=== PATIENT | female | born 1960 | race Caucasian/White ===

== ENCOUNTER 2021-04-01 08:36 | Outpatient (REF) | payer OTHER, SELFPAY ==
--- NOTE | ~2021-04-01 | MM_ITS ---
EXAMINATION: MM SCREENING DIGITAL BREAST TOMOSYNTHESIS, BILATERAL CLINICAL INFORMATION: Screening. Asymptomatic. The lifetime risk of breast cancer based on the Tyrer-Cuzick Model is 6%. COMPARISON: Mammography: 07/14/2018, 05/18/2017, 04/07/2016 TECHNIQUE: Digital breast tomosynthesis is performed in both the craniocaudal and mediolateral oblique views along with computer-aided detection (CAD). Synthesized 2D images are generated from the tomosynthesis. FINDINGS: There are scattered areas of fibroglandular density (ACR BI-RADS breast composition Category b). There are no significant masses, abnormal calcifications, or other abnormalities. Parenchymal pattern is similar to prior studies. There is no developing density or architectural abnormality. The axilla and skin contours are unremarkable. No significant changes. MM/MM tomosynthesis screening BI IMPRESSION: No mammographic evidence of malignancy. ASSESSMENT: BI-RADS 1: Negative RECOMMENDATION: Routine annual mammography screening. This patient's information was entered into a reminder system with a target due date for their next mammogram.
== END 2021-04-01 08:37 | disposition home or self-care (01) ==
LOC: HO.MAMMO 08:36
PROVIDERS: PCP Internal Medicine; Visit Provider Internal Medicine
DX: Z12.31 Encounter for screening mammogram for malignant neoplasm of breast (principal)
CPT/HCPCS: 77063; 77067

== ENCOUNTER → 2021-05-10 12:30 | Outpatient (BNVA) | payer OTHER, SELFPAY | PROVIDERS: PCP Internal Medicine; Referring Provider Internal Medicine; Visit Provider Nurse Practitioner | DX: D12.6 Benign neoplasm of colon, unspecified (principal) ==

== ENCOUNTER 2021-09-02 09:36 | Day surgery (SDC) | payer OTHER, SELFPAY ==
--- NOTE | 2021-08-30 10:35 | P.CONAN_ITS ---
Documented by User: Pamela Farah NP 08/30/21 10:35 HPI - Anesthesia Eval Consult details Narrative: 61yo F for Colonoscopy PMFSH Active Problems Active Problems: All Active Problems (Updated 05/07/21 @ 08:26 by SARINA Jarvis) Tubular adenoma of colon (Acute) Family history of polyps in the colon (Acute) Smoker (Acute) High cholesterol (Acute) Ovarian cyst (Acute) Past Medical History Medical History High cholesterol Ovarian cyst Smoker Surgical History Surgical History (Updated 05/07/21 @ 08:26 by SARINA Jarvis) H/O colonoscopy Social History Social History (System 01/01/21 @ 11:48 by April Lynne) Advance Directives: No Advance Directives Information Provided: Yes Meds Allergies Allergy/AdvReac Type Severity Reaction Status Date / Time No Known Allergies Allergy Unverified 05/10/21 13:03 [No Known Allergies*] Home Medications Medication Instructions Recorded Confirmed Last Taken Type aspirin 81 mg capsule 81 mg PO DAILY 05/10/21 Unknown History atorvastatin 40 mg tablet 40 mg PO DAILY 05/10/21 Unknown History ffybbhdg-wtq-eawyv ac 400 tab PO 05/10/21 Unknown History mcg-calcium carb 500 mg-vit K1 20 mcg tablet (Women's 50 Plus Multivitamin) Exam Exam Date and Time: August 30, 2021 103 Assessment and Plan Assessment Anesthesia Assessment: Chart Reviewed Documented by User: Julieth Gramajo MD 09/02/21 10:16 [facility] Past Medical History Medical History High cholesterol Ovarian cyst Smoker Family History Family history of problems with anesthesia: No Surgical History Surgical History (Updated 05/07/21 @ 08:26 by SARINA Jarvis) H/O colonoscopy History of Problems with Anesthesia: No Social History Social History (System 01/01/21 @ 11:48 by April Lynne) Advance Directives: No Advance Directives Information Provided: Yes Meds Allergies Allergy/AdvReac Type Severity Reaction Status Date / Time No Known Allergies Allergy Unverified 05/10/21 13:03 [No Known Allergies*] Home Medications Medication Instructions Recorded Confirmed Last Taken Type aspirin 81 mg capsule 81 mg PO DAILY 05/10/21 Unknown History atorvastatin 40 mg tablet 40 mg PO DAILY 05/10/21 Unknown History rdhklrra-edj-vdjwg ac 400 tab PO 05/10/21 Unknown History mcg-calcium carb 500 mg-vit K1 20 mcg tablet (Women's 50 Plus Multivitamin) Exam Airway Mallampati Class: II (Missing a couole nothing loose) TM Dist: >3cm Neck ROM: Full Heart: rrr Lungs: cta Assessment and Plan Assessment Anesthesia Assessment: Anesthesia Plan Discussed and Chart Reviewed Final Anesthetic Review Family History of Problems with Anesthesia: No History of Problems with Anesthesia: No NPO: Yes ASA Class: II Final Preanesthetic Review: No Changes in Pt Med Stat, Meds/Allgs Chart Reviewed and Consent Obtained/Reviewed Patient Risk: Intermediate Procedure Risk: Intermediate Anesthetic Plan Anesthetic Plan: MAC: Disposition: Standard PACU
[2021-09-02 10:03] VITALS: BP 124/63; PULSE 74; RESP 18; TEMP 36.9; O2SAT 98
--- NOTE | 2021-09-02 10:17 | MHC.SHP ---
Pre-Procedural Eval Section A Date of Service: 09/02/21 The patient is an INPATIENT: No The History & Physical has been completed within 30 days and I have reviewed it.: No Section B Chief Complaint: screening, Benign neoplasm of colon, Relevant Family History (Specify if Yes): Yes Relevant Social History: None Present Medications: see Short Stay Collaborative assessment Medical History: Significant History (High cholesterol Smoker Tubular adenoma Ovarian cyst) History of Previous Operations: Relevant previous surgery/procedure and date(s) (Bilateral oovarectomy, no hyst r/t ovarian cysts, history of colonoscopy) Allergies: Allergies Allergy/AdvReac Type Severity Reaction Status Date / Time No Known Allergies Allergy Unverified 05/10/21 13:03 [No Known Allergies*] Review of Systems Sugical H&P ROS: Negative: Constitution, Cardiovascular, Respiratory and Gastrointestinal Exam Surgical H&P Exam: Normal: Heart, Normal: Lungs, Normal: Extremities and Normal: Abdomen Plan Diagnosis/Plan: Unchanged I have reviewed the history and physical and performed a pertinent physical examination on my patient. No changes have occurred unless specified.
--- NOTE | 2021-09-02 10:23 | PM.OP ---
Brief Operative Note Date of Service: 09/02/21 Pre-op diagnosis: Colon cancer screening, history of colon polyps Post-op diagnosis: other (Colon polyps, diverticulosis, hemorrhoids) Procedure: COLONOSCOPY TILL CECUM WITH BIOPSIES AND SNARE POLYPECTOMY Consent: Indications for the procedure and potential complications of bleeding, perforation, reaction to medications and missed diagnosis were discussed with the patient and informed consent was obtained. Instrument: Olympus PCF H 190 L variable stiffness pediatric colonoscope Monitoring: Vital signs and clinical assessment, intermittent blood pressure monitoring, continuous EKG monitoring, Pulse oximetry and Carbon Dioxide monitoring were done throughout the procedure. Colon withdrawl time was 22 minutes. Procedure: The patient was placed in the left lateral decubitis position and pre-procedure medications were administered. After a digital rectal examination of the ano-rectum, the video colonoscope was inserted into the rectum and advanced through the colon to the cecum. The colonoscope was slowly withdrawn in a retrograde panoramic fashion and the colon mucosa was carefully examined including a retroflexed view of the rectum. Findings and interventions are described below. Procedure Difficulty: Colon was long and tortuous and there was some loop formation. No maneuvers were required Findings: Terminal Ileum: Not evaluated Cecum: Normal Ascending Colon: A 12-15 mm sessile polyp in the proximal AC removed with a hot snare. Two 4-5 mm sessile polyps removed with a cold bx. Transverse Colon: A 10 mm sessile polyp removed with a cold snare. Three 5-6 mm sessile polyps removed with a cold bx. Moderate diverticulosis Descending Colon: Moderate diverticulosis Sigmoid Colon: Severe diverticulosis with luminal narrowing Rectum: Normal Ano-rectum: Moderate internal hemorrhoids Colon preparation: Excellent Impression and Post Procedure Diagnosis: Colonoscopy Findings: Seven small to medium sized polyps removed Moderate to severe diverticulosis seen in the left and transverse colon Moderate hemorrhoids on retroflexed exam. Plan: Await pathology results Patient has an appointment on 09/20/21 in the GI Clinic with Batsheva Gudino NP. Repeat Colonoscopy interval based on path results - in 3 years if three or more polyps are adenomatous and 5 yrs if polyps are hyperplastic. Above findings were reviewed with the patient and colon polyps and diverticulosis handouts were given in the discharge area Surgeon: Niki Lewis MD Anesthesia: MAC (DR Thurman) Was an Employee Communications Coordinator used for this Procedure?: Yes Employee Communications Coordinator: Staci Hawkins Estimated blood loss (mL): 0 Pathology: other (A. ascending colon polyps (3) B. transverse colon polyp (3)) Condition: stable Disposition: PACU
[2021-09-02 11:05] VITALS: BP 97/53; PULSE 70; RESP 16; TEMP 36.5; O2SAT 97
[2021-09-02 11:20] VITALS: BP 125/58; PULSE 66; RESP 16; O2SAT 97
[2021-09-02 11:35] VITALS: BP 119/50; PULSE 58; RESP 16; TEMP 36.4; O2SAT 99
--- NOTE | 2021-09-02 12:25 | P.OP_ITS ---
Operative Note Operative Note Date of Service: 09/02/21 Narrative: Pre-op diagnosis: Colon cancer screening, history of colon polyps Post-op diagnosis:?other (Colon polyps, diverticulosis, hemorrhoids) Procedure: COLONOSCOPY TILL CECUM WITH BIOPSIES AND SNARE POLYPECTOMY Consent: Indications for the procedure and potential complications of bleeding, perforation, reaction to medications and missed diagnosis were discussed with the patient and informed consent was obtained. Instrument: Olympus PCF H 190 L variable stiffness pediatric colonoscope Monitoring: Vital signs and clinical assessment, intermittent blood pressure monitoring, continuous EKG monitoring, Pulse oximetry and Carbon Dioxide monitoring were done throughout the procedure. Colon withdrawl time was 22 minutes. Procedure: The patient was placed in the left lateral decubitis position and pre-procedure medications were administered. After a digital rectal examination of the ano-rectum, the video colonoscope was inserted into the rectum and advanced through the colon to the cecum. The colonoscope was slowly withdrawn in a retrograde panoramic fashion and the colon mucosa was carefully examined including a retroflexed view of the rectum. Findings and interventions are described below. Procedure Difficulty:? Colon was long and tortuous and there was some loop formation.? No maneuvers were required Findings: Terminal Ileum: Not evaluated Cecum:? Normal Ascending Colon:? A 12-15 mm sessile polyp in the proximal AC removed with a hot snare. Two 4-5 mm sessile polyps removed with a cold bx. Transverse Colon:? A 10 mm sessile polyp removed with a cold snare. Three 5-6 mm sessile polyps removed with a cold bx. Moderate diverticulosis Descending Colon:? Moderate diverticulosis Sigmoid Colon:? Severe diverticulosis with luminal narrowing Rectum:? Normal Ano-rectum:? Moderate internal hemorrhoids Colon preparation: Excellent ? Impression and Post Procedure Diagnosis: Colonoscopy Findings: Seven small to medium sized polyps removed Moderate to severe diverticulosis seen in the left and transverse colon Moderate hemorrhoids on retroflexed exam. Plan: Await pathology results Patient has an appointment on 09/20/21 in the GI Clinic with? Batsheva Gudino NP. Repeat Colonoscopy interval based on path results - in 3 years if three or more polyps are adenomatous and 5 yrs if polyps are hyperplastic. Above findings were reviewed with the patient and colon polyps and div erticulosis handouts were given in the discharge area Surgeon: Niki Lewis MD Anesthesia:?MAC (DR DiCampli) Was an Therapeutic Activities Services Worker used for this Procedure?:?Yes Therapeutic Activities Services Worker:?Staci Hawkins Estimated blood loss (mL):?0 Pathology:?other (A. ascending colon polyps (3)? B. transverse colon polyp (3)) Condition:?stable Disposition:?PACU
== END 2021-09-02 12:08 | disposition home or self-care (01) ==
PROVIDERS: PCP Internal Medicine; Visit Provider Internal Medicine Gastroenterology
PROC: 0DJD8ZZ Inspection of Lower Intestinal Tract, Via Natural or Artificial Opening Endoscopic (ICD-10-PCS; CPT 45378; principal; 2021-09-02 11:00)
DX: Z12.11 Encounter for screening for malignant neoplasm of colon (principal); Z86.010 Personal history of colon polyps; D12.2 Benign neoplasm of ascending colon; D12.3 Benign neoplasm of transverse colon; Z83.71 Family history of colonic polyps; K57.30 Diverticulosis of large intestine without perforation or abscess without bleeding; K64.8 Other hemorrhoids; E78.00 Pure hypercholesterolemia, unspecified; Z79.899 Other long term (current) drug therapy; Z79.82 Long term (current) use of aspirin
CPT/HCPCS: 45385; 45380; 88305

== ENCOUNTER 2022-04-28 13:19 | Outpatient (REF) | payer OTHER, SELFPAY ==
--- NOTE | ~2022-04-28 | MM_ITS ---
EXAMINATION: MM SCREENING DIGITAL BREAST TOMOSYNTHESIS, BILATERAL CLINICAL INFORMATION: Screening. Asymptomatic. The lifetime risk of breast cancer based on the Tyrer-Cuzick Model is 5%. COMPARISON: Mammography: 04/01/2021, 07/14/2018, 05/18/2017 TECHNIQUE: Digital breast tomosynthesis is performed in both the craniocaudal and mediolateral oblique views along with computer-aided detection (CAD). Synthesized 2D images are generated from the tomosynthesis. FINDINGS: There are scattered areas of fibroglandular density (ACR BI-RADS breast composition Category b). There are no significant masses, abnormal calcifications, or other abnormalities. No architectural abnormality or developing density or significant change from prior studies. There is a chronic circumscribed oval retroareolar nodule on the left similar to prior studies. The axilla are unremarkable. There is mild bilateral chronic nipple retraction. MM/MM tomosynthesis screening BI IMPRESSION: No mammographic evidence of malignancy. ASSESSMENT: BI-RADS 2: Benign RECOMMENDATION: Routine annual mammography screening. This patient's information was entered into a reminder system with a target due date for their next mammogram.
== END 2022-04-28 13:20 | disposition home or self-care (01) ==
LOC: HO.MAMMO 13:19
PROVIDERS: PCP Internal Medicine; Visit Provider Internal Medicine
DX: Z12.31 Encounter for screening mammogram for malignant neoplasm of breast (principal)
CPT/HCPCS: 77063; 77067

== ENCOUNTER 2023-05-11 12:18 | Outpatient (REF) | payer OTHER, SELFPAY | END 2023-05-11 12:19 | disposition home or self-care (01) | LOC: HO.MAMMO 12:18 | PROVIDERS: PCP Internal Medicine; Visit Provider Internal Medicine | DX: Z12.31 Encounter for screening mammogram for malignant neoplasm of breast (principal) | CPT/HCPCS: 77063; 77067 ==

== ENCOUNTER → 2023-05-11 12:30 | Outpatient (BNV) | payer OTHER, SELFPAY | PROVIDERS: PCP Internal Medicine; Visit Provider Radiology Diagnostic Radiology | DX: Z12.31 Encounter for screening mammogram for malignant neoplasm of breast (principal) | CPT/HCPCS: 77063; 77067 ==

== ENCOUNTER 2024-03-15 16:36 | Outpatient (REF) | payer OTHER, SELFPAY ==
--- OUTSIDE RECORDS SUMMARY | 2024-03-15 17:57 | XMS_ITS | Encounter Summary ---
Author Organization [email or web address] Address [address] [place] [address] Care Team Providers Care Seasonal Package Handler Name Role Phone Gregory Coronel MD Primary Care Provider [phone] Encounter Details Date Type Department Care Team (Late st Contact Info) Description 04/18/2022 Orders Only [facility] [address] [place], [place] [id number] Mariely Al LPN Social History Tobacco Use Types Packs/Day Years Used Date Smoking Tobacco: Never Assessed Comments Unknown Sex and Gender Information Value Date Recorded Sex Assigned at Female 12/23/2021 10:28 AM EDT Legal Sex Female 10:28 AM EDT Gender Identity Female 12/23/2021 10:28 AM EDT Sexual Orientation Choose not to disclose 2021 10:28 AM EDT documented as of this encounter Plan of Treatment Not on file documented as of this encounter Procedures Procedure Name Priority Date/Time Associated Diagnosis Comments BI MAMMOGRAM SCREENING TOMOSYNTHESIS BILATERAL Routine 04/28/2022 1:35 PM EST documented in this encounter Results * BI Mammogram Screening Tomosynthesis Bilateral (04/28/2022 1:35 PM EST) Anatomical Region Laterality Modality Breast Bilateral Mammography 04/28/2022 1:35 PM EST Narrative 04/30/2022 11:20 AM EST ? [facility] ? [address] ?[place] [address] ? Mammography Report ? Signed ? Patient: Del Rio,Isabel ?MR#: [id number] ?? 1 ? : 1960 ?Acct:[id number] ? Age/Sex: 61 / F ?ADM Date: 03/06/23 ? Loc: HO.MAMMO ? Attending Dr: Gregory Coronel MD ? Ordering Physician: Gregory Coronel MD ?Results: 2 ?? Benign Findings ? Date of Service: 04/28/22 ?Follow Up: 1 Year From Orig ?? inal Mammogram ? Procedure(s): MM tomosynthesis screening BI ?? Accession Number(s): [id number] ? cc: Gregory Coronel MD ? EXAMINATION: ?? MM SCREENING DIGITAL BREAST TOMOSYNTHESIS, BILATERAL ? CLINICAL INFORMATION: ? Screening. Asymptomatic. ? The lifetime risk of breast cancer based on the Tyrer-Cuzick Model is ?? 5%. ? COMPARISON: ?? Mammography: 04/01/2021, 07/14/2018, 05/18/2017 ? TECHNIQUE: ?? Digital breast tomosynthesis is performed in both the craniocaudal and ?? mediolateral oblique views along with computer-aided detection (CAD). ?? Synthesized 2D images are generated from the tomosynthesis. ? FINDINGS: ?? There are scattered areas of fibroglandular density (ACR BI-RADS breast ?? composition Category b). ? There are no significant masses, abnormal calcifications, or other ?? abnormalities. ??No architectural abnormality or developing density or ?? significant change from prior studies. There is a chronic circumscribed ?? oval retroareolar nodule on the left similar to prior studies. The ?? axilla are unremarkable. There is mild bilateral chronic nipple ?? retraction. ? MM/MM tomosynthesis screening BI ?? IMPRESSION: ?? No mammographic evidence of malignancy. ? ASSESSMENT: ? BI-RADS 2: Benign ? RECOMMENDATION: ?? Routine annual mammography screening. ? This patient's information was entered into a reminder system with a ?? target due date for their next mammogram. ? Dictated By: ?Wilfred Pollock MD ? Signed By: ?<Electronically signed by Wilfred Pollock MD in OV> ?04/30/226 ? DD/ 1335 ? TD/TT: ? Infrastructure Engineer: MCNAMARA ? Procedure Note Dondarrylter, Image - 04/30/2022 [facility] [address] [place] [address] Mammography Report Signed Patient: Victoriano Del Rio#: [id number] 1 : 1960Acct:[id number] Age/Sex: 61 / FADM Date: 04/28/22 Loc: HO.MAMMO Attending Dr: Gregory Coronel MD Ordering Physician: Gregory Coronel MDResults: 2 Benign Findings Date of Service: 04/28/22Follow Up: 1 Year From [facility] Mammogram Procedure(s): MM tomosynthesis screening BI Accession Number(s): [id number] cc: Gregory Coronel MD EXAMINATION: MM SCREENING DIGITAL BREAST TOMOSYNTHESIS, BILATERAL CLINICAL INFORMATION: Screening. Asymptomatic. The lifetime risk of breast cancer based on the Tyrer-Cuzick Model is 5%. COMPARISON: Mammography: 04/01/2021, 07/14/2018, 05/18/2017 TECHNIQUE: Digital breast tomosynthesis is performed in both the craniocaudal and mediolateral oblique views along with computer-aided detection (CAD). Synthesized 2D images are generated from the tomosynthesis. FINDINGS: There are scattered areas of fibroglandular density (ACR BI-RADS breast composition Category b). There are no significant masses, abnormal calcifications, or other abnormalities. No architectural abnormality or developing density or significant change from prior studies. There is a chronic circumscribed oval retroareolar nodule on the left similar to prior studies. The axilla are unremarkable. There is mild bilateral chronic nipple retraction. MM/MM tomosynthesis screening BI IMPRESSION: No mammographic evidence of malignancy. ASSESSMENT: BI-RADS 2: Benign RECOMMENDATION: Routine annual mammography screening. This patient's information was entered into a reminder system with a target due date for their next mammogram. Dictated By: Wilfred Pollock MD Signed By: <Electronically signed by Wilfred Pollock MD in OV> 04/30/22 1116 DD/ 1335 TD/TT: Infrastructure Engineer: MCNAMARA [facility] External Provider IMG BI PROCEDURES Final Result documented in this encounter Visit Diagnoses Not on filedocumented in this encounter Care Teams Seasonal Package Handler Relationship Specialty Start Date End Date Gregory Coronel MD [address] [place] [id number] PCP - General Internal Medicine 11/18/17 documented as of this encounter
--- OUTSIDE RECORDS SUMMARY | 2024-03-15 17:57 | XMS_ITS | Encounter Summary ---
Author Organization [employer] Address [address] [place] [address] Care Team Providers Care Meter Inspector Name Role Phone Gregory Coronel MD Primary Care Provider [phone] Encounter Details Date Type Department Care Team (Latest Contact Info) Description 03/15/2024 Travel Social History Tobacco Use Types Packs/Day Years Used Date Smoking Tobacco: Every Day Cigarettes 0.5 40 Smokeless Tobacco: Never Alcohol Use Standard Drinks/Week Comments Not Currently 0 (1 standard drink = 0.6 oz pur e alcohol) Depression Answer Date Recorded Patient Health Questionnaire-9 Score 1 07/28/2022 Housing Stability Answer Date Recorded What is your housing situation today? I have frankjuan pablo elaine 12/22/[address] you li ve. Do you have problems with any of the following? None of the above 12/22/2022 Food Insecurity Answer Date Recorded Within the past 12 months, y ou worried that your food would run out before you got money to buy more: Never True 12/22/2022 Within the past 12 months,th e food you bought just didn't last and you didn't have enough money to get more: Never True Transportation Answer Date Recorded In the past 12 months, has l ack of transportation kept you from medical appts, meetings, work or from getting things needed for daily living? No 12/22/2022 Utilities Answer Date Recorded In the past 12 months, has t he electric, gas, oil or water company threatened to shut off services in your home? No 12/22/2022 Depression Answer Date Recorded Patient Health Questionnaire-2 Score 0 07/28/2022 Comments No Sex and Gender Information Value Date Recorded Sex Assigned at Female 12/23/2021 10:28 AM EDT Legal Sex Female 10:28 AM EDT Gender Identity Female 12/23/2021 10:28 AM EDT Sexual Orientation Choose not to disclose 2021 10:28 AM EDT documented as of this encounter Plan of Treatment Not on file documented as of this encounter Visit Diagnoses Not on filedocumented in this encounter Additional Health Concerns Assessment Noted Time PHQ-9 Depression Total Score: 1 07/29/19 23 11:28 AM EDT documented as of this encounter Care Teams Meter Inspector Relationship Specialty Start Date End Date Gregory Coronel MD [address] [place] [id number] PCP - General Internal Medicine 11/18/17 documented as of this encounter
--- OUTSIDE RECORDS SUMMARY | 2024-03-15 17:57 | XMS_ITS | Clinical Summary ---
Author Organization [employer] Address [address] [place] [address] Care Team Providers Care Senior Network Security Architect Name Role Phone Gregory Coronel MD Primary Care Provider [phone] Allergies No known active allergies Medications atorvastatin (Lipitor) 40 MG tablet TAKE ONE TABLET DAILY 2 Active atorvastatin (Lipitor) 40 MG tabletIndications:M ixed hyperlipidemia TAKE ONE TABLET DAILY 90 tablet 3 4 Active Active Problems Problem Noted Date Diagnosed Date History of nutritional disorder 07/28/2022 Polyp of colon 02/14/2021 Dyslipidemia 02/12/2015 Smoker 02/12/2015 Vitamin D deficiency 02/12/2015 Encounters Date Type Department Care Team Description 03/15/2024 11:00 AM EST Procedure Visit [facility] [address] [place] [address] Petty Pizano CNM Routine cervical smear (Primary Dx) 03/15/2024 Travel 01/08/2024 Travel from Last 3 Months Family History Medical History Relation Name Comments Diabetes type II Brother Heart attack Brother Smoking Brother Alcohol abuse Father Heart disease Mother No Known Problems Paternal Grandmother Relation Name Status Comments Brother Father Mother Paternal Grandmother Social History Tobacco Use Types Packs/Day Years Used Date Smoking Tobacco: Every Day Cigarettes 0.5 40 Smokeless Tobacco: Never Tobacco Cessation:Ready to Q uit: Not Asked; Counseling Given: Not Answered Alcohol Use Standard Drinks/Week Comments Not Currently 0 (1 standard drink = 0.6 oz pur e alcohol) Depression Answer Date Recorded Patient Health Questionnaire-9 Score 1 07/28/2022 Housing Stability Answer Date Recorded What is your housing situation today? I have frank elaine 12/22/[address] you [...] not to disclose 2021 10:28 AM EDT Last Filed Vital Signs Vital Sign Reading Time Taken Comments Blood Pressure 171/84 03/15/2024 10:52 AM EST Pulse 77 03/15/2024 10:52 AM EST Temperature 35.8 ??C (96.5 ??F) 03/15/2024 1 0:52 AM EST Respiratory Rate 20 03/15/2024 10:5 2 AM EST Oxygen Saturation 99% 03/15/2024 10: 52 AM EST Inhaled Oxygen Concentration - - Weight 68.4 kg (150 lb 12.8 oz) 025 10:52 AM EST Height 154.9 cm (5' 1 ) 03/15/2024 10:5 2 AM EST Body Mass Index 28.49 03/15/2024 10:52 AM EST Plan of Treatment Health Maintenance Due Date Last Done Comments CT Colonography 1959 Colonoscopy 1959 Colorectal Cancer Screening 1959 FIT DNA/Cologuard 1959 FIT 1959 FOBT 1959 HIV Screening 1959 Sigmoidoscopy 1959 Alcohol/Substance Use Screening 1971 Hepatitis C Screening 07/04/1977 Lung Cancer Screening 07/04/2009 Zoster Vaccines (1 of 2) 07/04/2009 Pneumococcal Vaccine: Pediatrics (0 to 5 Years) and At-Risk Patients (6 to 64 Years) (2 of 2 - PCV) 12/30/2016 12/31/2015 Depression Screening 07/29/2023 07/28/2022, 07/29/19 23 SDOH Screening 07/29/2023 07/28/2022 COVID-19 Vaccine ( season) 2023 04/08/2021, 05/08/2020, 04/10/2020 Influenza Vaccine (#1) 2023 Cervical Cancer Screening 03/12/2024 HPV/Cotest 03/12/2024 03/12/2021, 11/16/2018 Pap Smear 03/12/2024 03/12/2021 Tobacco Screening 03/15/2025 03/15/2024 Mammogram 05/10/2025 05/11/2023, 03/0 07/2022, 04/01/2021, Additional history exists DTaP/Tdap/Td Vaccines (2 - Td or Tdap) 05/05/2026 05/05/2016 Lipid Panel 06/04/2026 06/04/2021, 02/26/2021 RSV Patients and Patients Aged 60 years or older (1 - 1-dose 75+ series) 07/04/2034 HIB Vaccines Aged Out No longer eligi ble based on patient's age to complete this topic HPV Vaccines Aged Out No longer eligi ble based on patient's age to complete this topic Hepatitis A Vaccines Aged Out No long er eligible based on patient's age to complete this topic Hepatitis B Vaccines Aged Out No long er eligible based on patient's age to complete this topic IPV Vaccines Aged Out No longer eligi ble based on patient's age to complete this topic Meningococcal Vaccine Aged Out No ash bita eligible based on patient's age to complete this topic RSV under 20 months Aged Out No longe r eligible based on patient's age to complete this topic Rotavirus Vaccines Aged Out No longer eligible based on patient's age to complete this topic Procedures Procedure Name Priority Date/Time Associated Diagnosis Comments BI MAMMOGRAM SCREENING TOMOSYNTHESIS BILATERAL Routine 05/11/2023 12:36 PM EDT LIPID PANEL, STANDARD Routine 06/04/2021 8:53 AM EDT THINPREP IMAGING PAP AND HPV MRNA E6/E7 WITH REFLEX TO HPV 16,18/45 Routine 03/12/2021 9:45 AM EST from Last 3 Months or Most Recently Relevant to Health Maintenance Results * BI Mammogram Screening Tomosynthesis Bilateral (05/11/2023 12:36 PM EDT) Anatomical Region Laterality Modality Breast Bilateral Mammography 05/11/2023 12:3 6 PM EDT Narrative 06/02/2023 10:50 PM EDT ? [facility] [place] ? [address] ?[place] [address] ? Mammography Report ? Signed ? Patient: Del Rio,Isabel ?MR#: [id number] ?? 1 ? : 1960 ?Acct:[id number] ? Age/Sex: 62 / F ?ADM Date: /18/24 ? Loc: HO.MAMMO ? Attending Dr: Gregory Coronel MD ? Ordering Physician: Gregory Coronel MD ?Results: 1 ?? Negative ? Date of Service: /18/24 ?Follow Up: 1 Year From Orig ?? inal Mammogram ? Procedure(s): MM tomosynthesis screening BI ?? Accession Number(s): [id number] ? cc: Gregory Coronel MD ? EXAMINATION: ?? MM SCREENING DIGITAL BREAST TOMOSYNTHESIS, BILATERAL ? CLINICAL INFORMATION: ? Screening. Asymptomatic. ? COMPARISON: ?? Mammography: This study is compared with prior exams dating back to ?? 2018. ? TECHNIQUE: ?? Digital breast tomosynthesis is performed in both the craniocaudal and ?? mediolateral oblique views along with computer-aided detection (CAD). ?? Synthesized 2D images are generated from the tomosynthesis. ? FINDINGS: ?? There are scattered areas of fibroglandular density (ACR BI-RADS breast ?? composition Category b). ? There are no significant masses, abnormal calcifications, or other ?? abnormalities. ? MM/MM tomosynthesis screening BI ?? IMPRESSION: ?? No mammographic evidence of malignancy. ? ASSESSMENT: ? BI-RADS BI-RADS 1 - Negative ? RECOMMENDATION: ?? Routine annual mammography screening. ? 1 year F/U ? This examination should not preclude the clinical evaluation of a ?? suspicious palpable abnormality. ? This patient's information was entered into a reminder system with a ?? target due date for their next mammogram. ? Dictated By: ?Sara Stern MD ? Signed By: ?<Electronically signed by Sara Stern MD in OV> ? 06/02/23 2246 ? DD/ 1236 ? TD/TT: ? Chief Radiation Therapist: ? Procedure Note Dorothy, Shelby - 06/02/2023 [facility] [address] [place] [address] [place] [address] Mammography Report Signed Patient: Victoriano Del Rio#: [id number] 1 : 1960Acct:[id number] Age/Sex: 62 / FADM Date: 05/11/23 Loc: HO.MAMMO Attending Dr: Gregory Coronel MD Ordering Physician: Gregory Coronel MDResults: 1 Negative Date of Service: 05/11/23Follow Up: 1 Year From [facility] ina Mammogram Procedure(s): MM tomosynthesis screening BI Accession Number(s): [id number] cc: Gregory Coroenl MD EXAMINATION: MM SCREENING DIGITAL BREAST TOMOSYNTHESIS, BILATERAL CLINICAL INFORMATION: Screening. Asymptomatic. COMPARISON: Mammography: This study is compared with prior exams dating back to 2019. TECHNIQUE: Digital breast tomosynthesis is performed in both the craniocaudal and mediolateral oblique views along with computer-aided detection (CAD). Synthesized 2D images are generated from the tomosynthesis. FINDINGS: There are scattered areas of fibroglandular density (ACR BI-RADS breast composition Category b). There are no significant masses, abnormal calcifications, or other abnormalities. MM/MM tomosynthesis screening BI IMPRESSION: No mammographic evidence of malignancy. ASSESSMENT: BI-RADS BI-RADS 1 - Negative RECOMMENDATION: Routine annual mammography screening. 1 year F/U This examination should not preclude the clinical evaluation of a suspicious palpable abnormality. This patient's information was entered into a reminder system with a target due date for their next mammogram. Dictated By: Sara Stern MD Signed By: <Electronically signed by Sara Stern MD in OV> 06/02/23 2246 DD/ 1236 TD/TT: Chief Radiation Therapist: Gregory Coronel MD IMG BI PROCEDURES Final Res ult * (ABNORMAL) LIPID PANEL, STANDARD (06/04/2021 8:53 AM EDT) Chol/HDLC Ratio 3.1 <5.0 (calc) [facility] Cholesterol, Total 148 <200 mg/dL [facility] HDL Cholesterol 48(L) > OR = 50 mg/dL [facility] LDL Cholesterol 83 mg/dL (calc) [facility] Comment: Reference range: <100 ?? Desirable range <100 mg/dL for primary prevention; ?? <70 mg/dL for patients with CHD or diabetic patients ?? with > or = 2 CHD risk factors. ?? LDL-C is now calculated using the Loki ?? calculation, which is a validated novel method providing ?? better accuracy than the Friedewald equation in the ?? estimation of LDL-C. ?? Ibrahima PEREZ et al. HILDA. 2013;310(19): 0640-4342 ?? (http://education.Cono-C/faq/XTY023) Non-HDL Cholesterol 100 <130 mg/dL (calc) [facility] Comment: For patients with diabetes plus 1 major ASCVD risk ?? factor, treating to a non-HDL-C goal of <100 mg/dL ?? (LDL-C of <70 mg/dL) is considered a therapeutic ?? option. Triglycerides 80 <150 mg/dL [facility] 06/04/2021 8:53 AM EDT Gregory Coronel MD LAB BLOOD ORDERABLES Final Result [facility] [address] * THINPREP TIS PAP AND HPV mRNA E6/E7 WITH REFLEX TO HPV 16,18/45 (03/12/2021 9:45 AM EST) Clinical Information: None given [facility] COMMENT SEE COMMENT [facility] Comment: EXPLANATORY NOTE: ? The Pap is a screening test for cervical cancer. It is ?? not a diagnostic test and is subject to false negative ?? and false positive results. It is most reliable when a ?? satisfactory sample, regularly obtained, is submitted ?? with relevant clinical findings and history, and when ?? the Pap result is evaluated along with historic and ?? current clinical information. ?? COMMENT: This Pap test has been evaluated with computer assisted technology. [facility] Inspector Watch Train: SEE COMMENT [facility] Comment: DMM, CT(ASCP) CT screening location: [address] ??[id number] HPV nRNA E6/E7 Not Detected Not Detected [facility] Comment: Methodology: Radiologic Technology Instructor-Mediated Amplification This assay detects E6/E7 viral messenger RNA (mRNA) from 14 high-risk HPV types (16,18,31,33,35,39,45,51,52,56,58,59,66,68). ? The analytical performance characteristics of this assay have been determined by [employer]. The modifications have not been cleared or approved by the FDA. This assay has been validated pursuant to the CLIA regulations and is used for clinical purposes. ?? For additional information, please refer to http://education.Vhall/faq/WRU170w7 (This link if provided for information/ educational purposes only.) Interpretation/Re sult: Negative for intraepithelial lesion or malignancy. [facility] LMP: NONE GIVEN [facility] Prev. BX: NONE GIVEN [facility] Prev. PAP: 2018/2017 NIL/NEG CIN2 2016 [facility] SOURCE: None given [facility] Statement Of Adequacy: SEE COMMENT [facility] Comment: Satisfactory for evaluation. Endocervical/transformation zone component present. Age and/or menstrual status not provided 03/12/2021 9:45 AM EST us Petty Pizano CNM LAB PATHOLOGY ORDERABLES Final Result [facility] [address] from Last 3 Months or Most Recently Relevant to Health Maintenance Insurance COUNTS INCLUDE 234 BEDS AT THE [facility] OPEN ACCESS [facility] Care Teams Senior Network Security Architect Relationship Specialty Start Date End Date Gregory Coronel MD [address] [place] [id number] PCP - General Internal Medicine 11/18/17
--- OUTSIDE RECORDS SUMMARY | 2024-03-15 17:57 | XMS_ITS | Encounter Summary ---
Author Organization [employer] Address [address] [facility] [address] [place] [address] Care Team Providers Care Guardian Ad Litem Name Role Phone Gregory Coronel MD Primary Care Provider [phone] Reason for Visit * Reason Comments Gynecologic Exam Encounter Details Date Type Department Care Team (Latest Contact Info) Description 03/15/2024 11:00 AM EST Procedure Visit [facility] [address] [place], [place] [phone] Petty Pizano CNM [address] [place], [place] [phone] Routine cervical smear (Primary Dx) Social History Tobacco Use Types Packs/Day Years [...] AM EDT documented as of this encounter Last Filed Vital Signs Vital Sign Reading [...] Mass Index 28.49 03/15/2024 10:52 AM EST documented in this encounter Progress Notes * Petty Pizano, PHONG - 03/15/2024 11:00 AM EST Subjective Patient ID: Isabel Del Rio is a 63 y.o. female who presents for [employer] visit Last visit with me in 2021, Pap NIL/HPV neg. G2, menopausal at 49. No bleeding since then. [facility] for evaluation of possible right ovarian dermoid. She reports right ovary removed, benign.No complications. Pap NIL. HPV neg 10/2018. History of DROIS 2 in 2017. 1 fpc AMAB partner, no safety concerns. Occasional stress incontinence, no other urinary or vaginal symptoms. No personal fracture, no parental hip fracture Mammogram BIRADS 1, cat b 04/2023. Rare vasomotor symptoms. BP elevated today, has significant stress with [employer] visits due to hx DORIS. Denies chest pain, SOB or headache. Review of Systems Respiratory: Negative for shortness of breath. Cardiovascular: Negative for chest pain. Genitourinary: Negative for dyspareunia, dysuria, frequency, genital sores, hematuria, menstrual problem, pelvic pain, urgency, vaginal bleeding, vaginal discharge and vaginal pain. No abnormal bleeding, no breast pain, no breast mass, no nipple discharge Neurological: Negative for headaches. Objective BP (!) 171/84 (BP Location: Left arm, Patient Position: Sitting, BP Cuff Size: Large adult) Pulse77 Temp 96.5 ??F (35.8 ??C) (Temporal) Resp 20 Ht 5' 1 (1.549 m) Wt 150 lb 12.8 oz (68.4 kg) SpO2 99% BMI 28.49 kg/m?? Physical Exam Constitutional: Appearance: Normal appearance. Chest: Breasts: Right: Normal. No swelling, bleeding, inverted nipple, mass, nipple discharge, skin change or tenderness. Left: Normal. No swelling, bleeding, inverted nipple, mass, nipple discharge, skin change or tenderness. Genitourinary: General: Normal vulva. Labia: Right: No rash, tenderness, lesion or injury. Left: No rash, tenderness, lesion or injury. Vagina: Normal. No signs of injury and foreign body. No vaginal discharge, erythema, tenderness, bleeding or lesions. Cervix: No cervical motion tenderness, discharge, friability, lesion, erythema, cervical bleeding or eversion. Uterus: Normal. Not enlarged and not tender. Adnexa: Right adnexa normal and left adnexa normal. Right: No mass, tenderness or fullness. Left: No mass, tenderness or fullness. Comments: Ovaries non palpable bilaterally. Good tone with Kegels,mild cystocele Valsalva Lymphadenopathy: Upper Body: Right upper body: No supraclavicular or axillary adenopathy. Left upper body: No supraclavicular or axillary adenopathy. Neurological: Mental Status: She is alert. Psychiatric: Mood and Affect: Mood normal. Behavior: Behavior normal. Assessment/Plan Diagnoses and all orders for this visit: Routine cervical smear - Pap Smear Cotest today. Will contact with results and plan. Continue pap/HPV Q3y through 2041 due to DORIS 2 [id number]. Routine mammography. BMD later this year. Report bleeding. documented in this encounter Plan of Treatment Scheduled Orders Name Type Priority Associated Diagnoses Orde r Schedule Pap Smear Pathology and Cytology Routine Routine cervical smear Ordered: 03/15/2024 documented as of this encounter Visit Diagnoses Diagnosis Routine cervical smear- Primary Screening for malignant neoplasm of the cervix documented in this encounter Additional Health Concerns Assessment Noted Time PHQ-9 Depression Total Score: 1 07/29/19 23 11:28 AM EDT documented as of this encounter Care Teams Guardian Ad Litem Relationship Specialty Start Date End Date Gregory Coronel MD [address] [place] [id number] PCP - General Internal Medicine 11/18/17 documented as of this encounter
[2024-03-23 08:20] LABS: HPV Genotype 16 Negative (Negative); HPV Genotype 18 Negative (Negative); HPV High Risk Negative (Negative)
== END 2024-03-15 16:37 | disposition home or self-care (01) ==
LOC: HO.HHCLNP 16:36
PROVIDERS: Visit Provider Advanced Practice Midwife
DX: Z12.4 Encounter for screening for malignant neoplasm of cervix (principal); Z11.51 Encounter for screening for human papillomavirus (HPV); Z78.0 Asymptomatic menopausal state
CPT/HCPCS: 87626; 88175

== ENCOUNTER 2024-08-18 09:46 | Outpatient (REF) | payer BC, SELFPAY ==
--- OUTSIDE RECORDS SUMMARY | 2024-08-18 11:02 | XMS_ITS | Clinical Summary ---
Author Organization [employer] Address [address] [facility] [address] [place] [address] Care Team Providers Care Field Appraiser Name Role Phone Gregory Coronel MD Primary Care Provider [phone] Allergies No known active allergies Medications atorvastatin (Lipitor) 40 MG tablet TAKE ONE TABLET DAILY 2 Active atorvastatin (Lipitor) 40 MG tabletIndications:M ixed hyperlipidemia TAKE ONE TABLET DAILY 90 tablet 3 4 Active Active Problems Problem Noted Date Diagnosed Date History of nutritional disorder 07/28/2022 Polyp of colon 02/14/2021 Dyslipidemia 02/12/2015 Smoker 02/12/2015 Vitamin D deficiency 02/12/2015 Family History Medical History Relation Name Comments [...] 77 03/15/2024 10:52 AM EST Temperature 35.8 C (96.5 F) 03/15/2024 10:52 AM EST Respiratory Rate 20 03/15/2024 10:5 [...] FIT DNA/Cologuard 1960 FIT 1960 FOBT 1960 Sigmoidoscopy 1960 Alcohol/Substance Use Screening 1971 Hepatitis C Screening 07/04/1977 Lung Cancer Screening 07/04/2009 Zoster Vaccines (1 of 2) 07/04/2009 Pneumococcal Vaccine: 50+ Years (2 of 2 - PCV) 12/30/2016 12/31/2015 Depression Screening 07/29/2023 07/28/2022, 07/29/19 23 SDOH Screening 07/29/2023 07/28/2022 COVID-19 Vaccine ( season) 2023 04/08/2021, 05/08/2020, 04/10/2020 Influenza Vaccine (Season Ended) 2024 Tobacco Screening 03/15/2025 03/15/2024 Mammogram 05/10/2025 05/11/2023, 03/0 07/2022, 04/01/2021, Additional history exists DTaP/Tdap/Td Vaccines (2 - Td or Tdap) 05/05/2026 05/05/2016 Lipid Panel 06/04/2026 06/04/2021, 02/26/2021 Cervical Cancer Screening 03/15/2027 HPV/Cotest 03/15/2027 03/15/2024, 02/23, 11/16/2018 Pap Smear 03/15/2027 03/15/2024, 03/12/2021 RSV Patients and Patients Aged 60 years [...] patient's age to complete this topic Meningococcal B Vaccine Aged Out No l onger eligible based on patient's age to complete [...] Procedure Name Priority Date/Time Associated Diagnosis Comments HPV DNA, LOW/HIGH RISK Routine 12:00 AM EST PAP SMEAR Routine 03/15/2024 12:00 AM EST Routine cervical smear BI MAMMOGRAM SCREENING TOMOSYNTHESIS BILATERAL Routine 05/11/2023 12:36 PM EDT LIPID PANEL, STANDARD Routine 06/04/2021 8:53 AM EDT from Last 3 Months or Most Recently Relevant to Health Maintenance Results * HPV DNA, Low/High Risk (03/15/2024 12:00 AM EST) HPV High Risk Negative Negative [facility] HPV Genotype 16 Negative Negative [facility] HPV Genotype 18 Negative Negative [facility] Comment:HPV testing performe d at [facility] (CLIA#[id number]), [address] [place] [address].Testing for HPV was performed using the Aubree CANDY 6800system. The presence of HPV in the female genital tract isassociated with a number of diseases, including cervicalcarcinoma. The HPV DNA high risk pool tests for HPV 31, 33,35, 39, 45, 51, 52, 56, 58, 59, 66 and 68. The testing forHPV 16 and 18 genotypes has also been performed. A positiveresult indicates detection of nucleic acid sequences fromone or more subtypes, whereas a negative result indicatessuch sequences were not detected. 03/15/2024 03/16/2024 6:1 5 AM EST us Danilo YANG LAB BLOOD ORDERABLES Victoria izquierdo Result [facility] [address] [place] [phone] * Pap Smear (03/15/2024 12:00 AM EST) Swab Cervix uteri structure / Unknown 03/15/2024 03/16/2024 6:15 AM EST Narrative [facility] - 03/21/2024 10:36 AM EST ----- ------- Name: Isabel Del Rio Age/Sex: 63/F : 1960 Unit#: [id number] Attend Dr: DANILO AYON CNM Re03/15/24 Status: DEP [facility] ----- ------- SPEC : [id number] RECD: 03/16/24 STATUS: NREEIDA RE NUM: [id number] GEE: 03/15/24-[address]: DANILO AYON CNM ENTERED: 03/16/24 SP TYPE: Pap Smr OTHR DR: ORDERED: Pap Smear Interpretation Satisfactory for evaluation. Negative for intraepithelial lesion or malignancy. HPV High Risk: Negative HPV Genotyping 16: Negative HPV Genotyping 18: Negative Clinical Information LMP: Post menopausal Previous PAP test: NIL/neg 2021, hx CIN2 in 2016 Other surgery: Other history: Material Received ThinPrep-Cervix ----- ------- Signed (signature on file) COURTNEY Mora (ASCP) 03/21/24 1036 ----- ------- END OF REPORT Danilo YANG LAB CYTOLOGY ORDERABLES F inal Result [facility] [address] [place] [address] [phone] * BI Mammogram Screening Tomosynthesis Bilateral (05/11/2023 12:36 PM EDT) Anatomical Region Laterality Modality Breast Bilateral Mammography 05/11/2023 12:3 6 PM EDT Narrative 06/02/2023 10:50 PM EDT [facility] [address] [place] [address] Mammography Report Signed Patient: Isabel Del Rio MR#: [id number] 1 : 1960 Acct:[id number] Age/Sex: 62 / F ADM Date: 05/11/23 Loc: HO.MAMMO Attending Dr: Gregory Coronel MD Ordering Physician: Gregory Coronel MD Results: 1 Negative Date of Service: 05/11/23 Follow Up: 1 Year From Orig inal Mammogram Procedure(s): MM tomosynthesis screening BI Accession Number(s): [id number] cc: Gregory Coronel MD EXAMINATION: MM SCREENING [...] in OV> 06/02/23 2246 DD/ 1236 TD/TT: Physician Ophthalmologist: Procedure Note Donotuseinterpreter, Image - 06/02/2023 [facility] [address] [place] [address] Mammography Report Signed Patient: Victoriano Del Rio#: [id number] 1 : 1960Acct:[id number] Age/Sex: 62 / FADM Date: 05/11/23 Loc: HO.MAMMO Attending Dr: Gregory Coronel MD Ordering Physician: Gregory Coronel MDResults: 1 Negative Date of Service: 05/11/23Follow Up: 1 Year From Orig ina Mammogram Procedure(s): MM tomosynthesis screening BI Accession Number(s): [id number] cc: Gregory Coronel MD EXAMINATION: MM SCREENING [...] in OV> 06/02/23 2246 DD/ 1236 TD/TT: Physician Ophthalmologist: us Gregory Coronel MD IMG BI PROCEDURES Final Res ult * (ABNORMAL) LIPID PANEL, STANDARD (06/04/2021 8:53 AM EDT) Chol/HDLC Ratio 3.1 <5.0 (calc) [facility] Cholesterol, Total 148 <200 mg/dL [facility] HDL Cholesterol 48(L) > OR = 50 mg/dL [facility] LDL Cholesterol 83 mg/dL (calc) [facility] Comment: Reference range: <100 Desirable range <100 mg/dL for primary prevention; <70 mg/dL for patients with CHD or diabetic patients with > or = 2 CHD risk factors. LDL-C is now calculated using the Ibrahima-Cline calculation, which is a validated novel method providing better accuracy than the Friedewald equation in the estimation of LDL-C. Ibrahima SS et al. HILDA. 2013;310(19): 2583-8805 (http://education.Sensbeat.PanTheryx/faq/DBK632) Non-HDL Cholesterol 100 <130 mg/dL (calc) [facility] Comment: For patients with diabetes plus 1 major ASCVD risk factor, treating to a non-HDL-C goal of <100 mg/dL (LDL-C of <70 mg/dL) is considered a therapeutic option. Triglycerides 80 <150 mg/dL [facility] 06/04/2021 8:53 AM EDT us Gregory Coronel MD LAB BLOOD ORDERABLES Final Result [facility] [address] from Last 3 Months or Most Recently Relevant to Health Maintenance Insurance [facility] Address: [address] [address] [place] [address] * Guarantor: Natacha Del Rioa S Account Type Relation to Patient Date of Phone Billing Address Personal/Family Self [address] Care Teams Field Appraiser Relationship Specialty Start Date End Date Gregory Coronel MD [address] [place] [phone] PCP - General Internal Medicine 11/18/17
== END 2024-08-18 09:47 | disposition home or self-care (01) ==
LOC: HO.MAMMO 09:46
PROVIDERS: PCP Internal Medicine; Visit Provider Internal Medicine
DX: Z12.31 Encounter for screening mammogram for malignant neoplasm of breast (principal)
CPT/HCPCS: 77063; 77067

== ENCOUNTER → 2024-08-18 10:30 | Outpatient (BNV) | payer BC, SELFPAY | PROVIDERS: PCP Internal Medicine; Visit Provider Internal Medicine | DX: Z12.31 Encounter for screening mammogram for malignant neoplasm of breast (principal) | CPT/HCPCS: 77063; 77067 ==

== ENCOUNTER 2024-09-22 13:06 | Outpatient (REF) | payer BC, SELFPAY ==
--- NOTE | ~2024-09-22 | MM_ITS ---
EXAMINATION: MM DIAGNOSTIC DIGITAL BREAST TOMOSYNTHESIS, LEFT Limited left breast ultrasound. CLINICAL INFORMATION: Call back from screening for circumscribed oval mass in the retroareolar region anterior depth. COMPARISON: Mammography: Priors on PACS. TECHNIQUE: Digital breast tomosynthesis is performed in both the craniocaudal and mediolateral oblique views along with computer-aided detection (CAD). Synthesized 2D images are generated from the tomosynthesis. FINDINGS: There are scattered areas of fibroglandular density (ACR BI-RADS breast composition Category b). Circumscribed oval mass retroareolar region persists on additional imaging projections. There are no significant masses, abnormal calcifications, or other abnormalities. Targeted color Doppler ultrasound scanning from 10 -2:00 demonstrates a area of adjacent simple to minimally complicated cysts with thin intervening septations without any vascular flow at 12:00 2 cm from the nipple which measures 8 x 2 x 5 mm and correlates with the circumscribed oval mass on mammography and is benign. MM/MM tomosynthesis added views L IMPRESSION: Adjacent simple and minimally complicated cysts with thin avascular intervening septations. Benign. ASSESSMENT: BI-RADS BI-RADS 2 - Benign Findings RECOMMENDATION: 1 year F/U Results were provided to the patient at time of visit by the technologist. This patient's information was entered into a reminder system with a target due date for their next mammogram. Electronically signed by: Awa Gonsalves DO 09/22/2024 02:14 PM EDT
--- OUTSIDE RECORDS SUMMARY | 2024-09-22 13:18 | XMS_ITS | Encounter Summary ---
Author Organization [employer] Address [address] [facility] [address] [place] [address] Care Team Providers Care Sales Representative [employer] Name Role Phone Gregory Coronel MD Primary Care Provider [phone] Encounter Details Date Type Department Care Team (Latest Contact Info) Description 09/04/2024 Results Follow-Up [facility] [address] [place], [place] [phone] Imani Palacios FNP [address] [place], [place] [phone] BI Mammogram Screening Tomosynthesis Bilateral Social History Tobacco Use Types Packs/Day Years [...] documented as of this encounter Care Teams Sales Representative [employer] Relationship Specialty Start Date End Date Gregory Coronel MD [address] [place] [address] PCP - General Internal Medicine 11/18/17 documented as of this encounter
== END 2024-09-22 13:07 | disposition home or self-care (01) ==
LOC: HO.MAMMO 13:06
PROVIDERS: PCP Internal Medicine; Visit Provider Internal Medicine
DX: N63.25 Unspecified lump in the left breast, overlapping quadrants (principal)
CPT/HCPCS: 76642; 77061; 77065

== ENCOUNTER → 2024-09-22 13:30 | Outpatient (BNV) | payer BC, SELFPAY | PROVIDERS: PCP Internal Medicine; Visit Provider Internal Medicine | DX: N60.02 Solitary cyst of left breast (principal) | CPT/HCPCS: 76642; 77061; 77065 ==

== ENCOUNTER 2025-01-05 09:53 | Outpatient (AMB) | payer BC, SELFPAY ==
--- NOTE | 2025-01-05 09:54 | A.OFFVIS_ITS ---
Vital Signs 01/05/25 10:23 Height 5 ft 1 in Weight 147 lb 4.301 oz BMI 27.8 BP 138/65 Blood Pressure Location Lt brachial Position Sitting Pulse 70 Intake Visit Reasons: Repeat colonoscopy Intake Note: Isabel presents to in office visit today for colonoscopy screening. Allergies No Known Allergies (No Known Allergies*) Allergy (Verified 01/05/25 10:30) HPI HPI Repeat colonoscopy: Details: 64-year-old female here for preprocedural meeting to discuss a repeat colonoscopy in the context of having a large polyp removed in 2021. Her primary care provider is at [facility]. PMX Smoker High cholesterol MY LAST NOTE FROM 2021: Assessment & Plan (1) Tubular adenoma of colon: ?Comment: 2017 scope ?Code(s): D12.6 - Benign neoplasm of colon, unspecified ?Plan: She had labs last month at [facility] we will need to get these for pre op. She requests the lower volume prep as she had trouble with the go lytely. She denies any prior problems with anesthesia or sedation. She denies any bowel or upper GI problems.? She denies any cardiac or respiratory problems. She had 3 TA's on her 2017 scope. She has a strong FHX of polyps in her brothers. ? ? ? Orders: Orders Comprehensive Met. Panel 05/10/21 D12.6 - Benign neoplasm of colo n, unspecified ? Complete Blood Count Auto Diff 05/10/21 D12.6 - Benign neoplasm of colo n, unspecified ? Medications: New sodium,potassium,mag sulfates 17.5-3.13-1.6 gram (Suprep Bowel Prep Kit) 480 mL PO;? 354 mL 0RF D12.6 - Benign neoplasm of colon, unspecified ? LABS: TODAY'S VISIT She requests the lower volume prep as she had trouble with the go lytely. She denies any prior problems with anesthesia or sedation. She denies any bowel or upper GI problems.? She denies any cardiac or respiratory problems [facility] Medical History (Updated 01/05/25 @ 10:56 by SARINA Jarvis) Smoker High cholesterol Ovarian cyst Surgical History (Updated 01/05/25 @ 10:32 by JOSSE Webb) H/O colonoscopy Social History (Updated 01/05/25 @ 10:32 by JOSSE Webb) Alcohol intake: current Alcohol intake frequency: holidays/special occasions only Patient Tobacco Use Status: Former Tobacco user Tobacco use type: Cigarette Review of Systems Const Denies fatigue, Denies fever(s), Denies night sweats, Denies poor appetite and Denies weight loss ENT Reports Normal hearing present, Denies dental pain, Denies dysphagia, Denies hearing loss, Denies mouth pain, Denies odynophagia, Denies throat swelling, Denies tongue swelling and Reports other (Dentition adequate) Card Reports no additional complaints Resp Reports no additional complaints GI Details: Denies abdominal pain, Denies melena, Denies bloating, Denies hematochezia, Denies constipation, Denies GI cramping, Denies dysphagia, Denies excessive flatus, Denies early satiety, Denies heartburn, Denies diarrhea, Denies nausea, Denies odynophagia, Denies vomiting and Denies hematemesis Skin/Breast Denies pruritus, Denies lesions, Denies rash and Denies jaundice Neuro Reports Normal hearing present and Denies Abnormal speech present Endo Denies fatigue Aller/Immun Denies throat swelling and Denies tongue swelling Physical Exam Vital Signs: Last Vital Signs Pulse 70 01/05/25 10:23 BP 138/65 01/05/25 10:23 BMI result Body Mass Index 27.8 Const General: cooperative, no acute distress, well developed and well groomed Nutritional Appearance: average body habitus and well nourished Orientation/consciousness: oriented to person, oriented to place and oriented to time Limitations: No language barrier HEENT Head: Yes normocephalic and Yes atraumatic Eyes General: appearance normal, both eyes and all related structures Pupils: Equal, round and reactive pupils present Neck Neck: Yes normal visual inspection and Yes no lymphadenopathy Thyroid: Thyroid normal Resp Effort & Inspection: normal respiratory effort and able to speak in complete sentences Auscultation: clear to auscultation bilaterally Cardio Rate: regular rate Rhythm: regular rhythm Heart sounds: Normal, physiologic split S2 sound present Peripheral pulses: radial pulses present and posterior tibial pulses present GI Inspection: No distended, No Abdominal panniculus present and Yes obesity Palpation (GI): Soft to palpation, nontender, no guarding, not rigid and No hepatosplenomegaly present Percussion: Yes normal to percussion Auscultation: normal bowel sounds Rectal Exam - Female: deferred Skin General skin exam: no rashes or lesions noted, turgor normal, skin not dry, no jaundice, No spider nevi and no striae Rashes: no rashes Nails: normal Neuro General: oriented to person, oriented to place and oriented to time Cranial nerves: Yes Equal, round and reactive pupils present and Yes Normal hearing present Speech: No Abnormal speech present Extrem General: Yes normal to inspection, No clubbing, No cyanosis and No edema Psych Appearance: grossly normal and well kempt Mental Status: mental status grossly normal Speech and movement: Normal speech and movement present Affect: normal affect Attitude: cooperative Thought process: Normal thought process present and not confabulating Thought content: Normal thought content present Insight: Good insight present (Psych) Judgement: Good judgement present (Psych) Assessment & Plan Assessment & Plan (1) Tubular adenoma of colon: Comment: 2017 scope Code(s): D12.6 - Benign neoplasm of colon, unspecified Category: Medical (2) Pre-op examination: Code(s): Z01.818 - Encounter for other preprocedural examination Category: Medical Plan She requests the lower volume prep as she had trouble with the go lytely. She denies any prior problems with anesthesia or sedation. She denies any bowel or upper GI problems.? She denies any cardiac or respiratory problems again, she had a tubular adenoma removed 5 years ago. Orders: Orders Comprehensive Met. Panel Today D12.6 - Benign neoplasm of colon, unspecified Complete Blood Count Auto Diff Today D12.6 - Benign neoplasm of colon, unspecified Referrals GI Procedure Notification D12.6 - Benign neoplasm of colon, unspecified Medications: New sodium,potassium,mag sulfates 17.5-3.13-1.6 gram (Suprep Bowel Prep Kit) 480 mL orally; FOR COLONOSCOPY PREP, disregard go lytely script 354 mL 0RF bisacodyl (Dulcolax (bisacodyl)) 10 mg (2 x 5 mg) PO BEDTIME 4 tabs 0RF 2 days Coding Level of Care Code New Pt Level 3 (62123) Diagnoses Tubular adenoma of colon D12.6 Pre-op examination Z01.818
[2025-01-05 10:23] VITALS: BP 138/65; PULSE 70; BMI 27.8
--- OUTSIDE RECORDS SUMMARY | 2025-01-05 11:42 | XMS_ITS | Encounter Summary ---
Author Organization [employer] Address [address] [facility] [address] [place] [address] Care Team Providers Care Data Scientist Name Role Phone Gregory Coronel MD Primary Care Provider [phone] Encounter Details Date Type Department Care Team (Late st Contact Info) Description 04/18/2022 Orders Only [facility] [address] [place], [place] [phone] Mariely Al LPN Social History Tobacco Use [...] PM EST Narrative 04/30/2022 11:20 AM EST [facility] [address] [place] [address] Mammography Report Signed Patient: Isabel Del Rio MR#: [id number] 1 : 1960 Acct:[id number] Age/Sex: 61 / F ADM Date: 04/28/22 Loc: HO.MAMMO Attending Dr: Gregory Coronel MD Ordering Physician: Gregory Coronel MD Results: 2 Benign Findings Date of Service: 04/28/22 Follow Up: 1 Year From [facility] Mammogram Procedure(s): MM tomosynthesis screening BI Accession Number(s): [id number] cc: Gregory Coronel MD EXAMINATION: MM SCREENING [...] in OV> 04/30/22 1116 DD/ 1335 TD/TT: Branding Specialist: NAIMA Procedure Note Donotuseinterpreter, Image - 04/30/2022 [facility] [address] [place] [address] Mammography Report Signed Patient: Victoriano Del Rio#: [id number] 1 : 1960Acct:[id number] Age/Sex: 61 / FADM Date: 04/28/22 Loc: HO.MAMMO Attending Dr: Gregory Coronel MD Ordering Physician: Gregory Coronel MDResults: 2 Benign Findings Date of Service: 04/28/22Follow Up: 1 Year From Orig ina Mammogram Procedure(s): MM tomosynthesis screening BI Accession Number(s): [id number] cc: Gregory Coronel MD EXAMINATION: MM SCREENING [...] in OV> 04/30/22 1116 DD/ 1335 TD/TT: Branding Specialist: MCNAMARA [facility] External Provider IMG BI PROCEDURES Final Result documented in this encounter Visit Diagnoses Not on filedocumented in this encounter Care Teams Data Scientist Relationship Specialty Start Date End Date Gregory Coronel MD [address] [place] [address] PCP - General Internal Medicine 11/18/17 documented as of this encounter
--- OUTSIDE RECORDS SUMMARY | 2025-01-05 11:42 | XMS_ITS | Clinical Summary ---
Author Organization [employer] Address [address] [facility] 7t [place] [address] Care Team Providers Care Custom Van Converter Name Role Phone Gregory Coronel MD Primary Care Provider [phone] Allergies No known active allergies Medications atorvastatin [...] Encounters Date Type Department Care Team Description 01/05/2025 Orders Only GENERIC EXTERNAL DATA DEPARTMENT Provider, Generic External Data from Last 3 Months Family History Medical [...] the past 12 months, has t he [employer] gas, oil or water company threatened to [...] 23 SDOH Screening 07/29/2023 07/28/2022 COVID-19 Vaccine (4 - season) 2024 04/08/2021, 05/08/2020, 04/10/2020 Influenza Vaccine (#1) 2024 Tobacco Screening 03/15/2025 03/15/2024 DTaP/Tdap/Td Vaccines (2 - Td or Tdap) 05/05/2026 05/05/2016 Lipid Panel 06/04/2026 06/04/2021, 02/26/2021 Mammogram 09/22/2026 09/22/2024, 08/25, 08/18/2024, Additional history exists Cervical Cancer Screening 03/15/2027 HPV/Cotest 03/15/2027 03/15/2024, [...] Procedure Name Priority Date/Time Associated Diagnosis Comments CBC WITH AUTO DIFFERENTIAL Routine 01/05/2025 11:19 AM EST BI US BREAST LIMITED LEFT Routine 09/22/2024 1:14 PM EDT HPV DNA, LOW/HIGH RISK Routine 03/15/2024 12:00 AM EST PAP SMEAR Routine 03/15/2024 12:00 AM EST Routine cervical smear LIPID PANEL, STANDARD Routine 06/04/2021 8:53 AM EDT from Last 3 Months or Most Recently Relevant to Health Maintenance Results * (ABNORMAL) CBC auto differential (01/05/2025 11:19 AM EST) White Blood Count 9.0 4.8 - 10.8 X10*3/uL [facility] Red Blood Count 4.30 4.20 - 5.50 X10*6/uL [facility] Hemoglobin 13.3 12.0 - 16.0 g/dl [facility] Hematocrit 40.1 37.0 - 47.0 % [facility] Mean Corpuscular Volume 93.3 80.0 - 98.0 fL [facility] Mean Corpuscular Hemoglobin 30.9 27.0 - 33.0 pg [facility] Mean Corpuscular HGB Conc 33.2 31.0 - 35.0 g/dl [facility] Red Cell Distribution Width 11.4 11.0 - 16.0 % [facility] Platelet Count 305 160 - 400 X10*3/uL [facility] Mean Platelet Volume 9.0(L) 9.4 - 12.3 fL [facility] Neutrophils Percent Auto 50.7 45 - 73 % [facility] Imm Gran Pct Auto 0.3 0.0 - 0.4 % [facility] Lymphocytes Percent Auto 41.5(H) 20 - 40 % [facility] Monocytes Percent Auto 5.7 2 - 11 % [facility] Eosinophils Percent Auto 1.1 0 - 4 % [facility] Basophils Percent Auto 0.7 0 - 2 % [facility] NRBC Pct Auto 0.0 0.0 - 0.2 /100WBC [facility] Neutrophils Absolute Auto 4.5 2.0 - 8.3 x10*3/uL [facility] Imm Gran Abs Auto 0.03 0.00 - 0.03 X10*3/uL [facility] Lymphocytes Absolute Auto 3.7 1.2 - 4.9 X10*3/uL [facility] Monocytes Absolute Auto 0.5 0.1 - 1.2 X10*3/uL [facility] Eosinophils Absolute Auto 0.1 0.0 - 0.4 X10*3/uL [facility] Basophils Absolute Auto 0.1 0.0 - 0.2 X10*3/uL [facility] NRBC Abs Auto 0.000 0.0 - 0.012 X10*3/uL [facility] 01/05/2025 11:1 9 AM EST 01/05/2025 11:19 AM EST us Generic External Data Provider LAB BLOOD ORDERAB LES Final Result Performing Organization Address City/State/[facility] Co de Phone Number [facility] [address] [place] [address] [phone] * BI US Breast Limited Left (09/22/2024 1:14 PM EDT) Anatomical Region Laterality Modality Breast Left Ultrasound 09/22/2024 1:14 PM EDT Narrative 09/22/2024 2:17 PM EDT [facility] [address] [place] [address] Ultrasound Report Signed Patient: Isabel Del Rio MR#: [id number] 1 : 1960 Acct:[id number] Age/Sex: 64 / F ADM Date: 09/22/24 Loc: HO.MAMMO Attending Dr: Gregory Coronel MD Ordering Physician: Gregory Coronel MD Date of Service: 09/22/24 Procedure(s): US breast LT limited mamm only Accession Number(s): [id number] cc: Gregory Coronel MD EXAMINATION: MM DIAGNOSTIC DIGITAL BREAST TOMOSYNTHESIS, LEFT Limited left breast ultrasound. CLINICAL INFORMATION: Call back from screening for circumscribed oval mass in the retroareolar region anterior depth. COMPARISON: Mammography: Priors on PACS. TECHNIQUE: Digital breast tomosynthesis is performed in both the craniocaudal and mediolateral oblique views along with computer-aided detection (CAD). Synthesized 2D images are generated from the tomosynthesis. FINDINGS: There are scattered areas of fibroglandular density (ACR BI-RADS breast composition Category b). Circumscribed oval mass retroareolar region persists on additional imaging projections. There are no significant masses, abnormal calcifications, or other abnormalities. Targeted color Doppler ultrasound scanning from 10 -2:00 demonstrates a area of adjacent simple to minimally complicated cysts with thin intervening septations without any vascular flow at 12:00 2 cm from the nipple which measures 8 x 2 x 5 mm and correlates with the circumscribed oval mass on mammography and is benign. US/US breast LT limited mamm only IMPRESSION: Adjacent simple and minimally complicated cysts with thin avascular intervening septations. Benign. ASSESSMENT: BI-RADS BI-RADS 2 - Benign Findings RECOMMENDATION: 1 year F/U Results were provided to the patient at time of visit by the technologist. This patient's information was entered into a reminder system with a target due date for their next mammogram. Electronically signed by: Awa Gonsalves DO 09/22/2024 02:14 PM EDT Dictated By: Awa Gonsalves DO Signed By: <Electronically signed by Awa Gonsalves DO in OV> 09/22/24 1414 DD/ 1314 TD/TT: 09/22/24 1400 Broadcast Meteorologist: Procedure Note Donotuseinterpreter, Image - 09/22/2024 [facility] [address] [place] [address] Ultrasound Report Signed Patient: Victoriano Del Rio#: [id number] 1 : 1960Acct:[id number] Age/Sex: 64 / FADM Date: 09/22/24 Loc: HO.MAMMO Attending Dr: Gregory Coronel MD Ordering Physician: Gregory Coronel MD Date of Service: 09/22/24 Procedure(s): US breast LT limited mamm only Accession Number(s): [id number] cc: Gregory Coronel MD EXAMINATION: MM DIAGNOSTIC DIGITAL BREAST TOMOSYNTHESIS, LEFT Limited left breast ultrasound. CLINICAL INFORMATION: Call back from screening for circumscribed oval mass in the retroareolar region anterior depth. COMPARISON: Mammography: Priors on PACS. TECHNIQUE: Digital breast tomosynthesis is performed in both the craniocaudal and mediolateral oblique views along with computer-aided detection (CAD). Synthesized 2D images are generated from the tomosynthesis. FINDINGS: There are scattered areas of fibroglandular density (ACR BI-RADS breast composition Category b). Circumscribed oval mass retroareolar region persists on additional imaging projections. There are no significant masses, abnormal calcifications, or other abnormalities. Targeted color Doppler ultrasound scanning from 10 -2:00 demonstrates a area of adjacent simple to minimally complicated cysts with thin intervening septations without any vascular flow at 12:00 2 cm from the nipple which measures 8 x 2 x 5 mm and correlates with the circumscribed oval mass on mammography and is benign. US/US breast LT limited mamm only IMPRESSION: Adjacent simple and minimally complicated cysts with thin avascular intervening septations. Benign. ASSESSMENT: BI-RADS BI-RADS 2 - Benign Findings RECOMMENDATION: 1 year F/U Results were provided to the patient at time of visit by the technologist. This patient's information was entered into a reminder system with a target due date for their next mammogram. Electronically signed by: Awa Gonsalves DO 09/22/2024 02:14 PM EDT Dictated By: Awa Gonsalves DO Signed By: <Electronically signed by Awa Gonsalves DO in OV> 09/22/24 1414 DD/ 1314 TD/TT: 09/22/24 1400 Broadcast Meteorologist: us Gregory Coronel MD IMG US PROCEDURES Final Res ult * HPV DNA, Low/High Risk (03/15/2024 12:00 AM EST) HPV High Risk Negative Negative [facility] HPV Genotype 16 Negative Negative [facility] HPV Genotype 18 Negative Negative [facility] Comment:HPV testing performe d at [facility] (CLIA#[id number]), [address] [place] [id number].Testing for HPV was performed using the Aubree [...] detected. 03/15/2024 03/16/2024 6:1 5 AM EST Danilo Ayon CNM LAB BLOOD ORDERABLES Victoria l Result [facility] [address] [place] [address] [phone] * Pap Smear (03/15/2024 12:00 AM EST) Swab Cervix uteri structure / Unknown 03/15/2024 03/16/2024 6:15 AM EST Narrative [facility] - 03/21/2024 10:36 AM EST ----- ------- Name: Isabel Del Rio Age/Sex: 63/F : 1960 Unit#: [id number] Attend Dr: DANILO AYON CNM Re03/15/24 Status: DEP REF [facility] Disch: ----- ------- SPEC : [id number] RECD: 03/16/24 STATUS: NEREIDA BLANCA NUM: [id number] GEE: 03/15/24-[address]: DANILO AYON CNM [...] 03/21/24 1036 ----- ------- END OF REPORT us Danilo Ayon CNM LAB CYTOLOGY ORDERABLES F inal Result [facility] [address] [place] [address] [phone] * (ABNORMAL) LIPID PANEL, STANDARD (06/04/2021 8:53 AM EDT) Chol/HDLC Ratio 3.1 <5.0 (calc) [facility] Cholesterol, Total 148 <200 mg/dL [facility] HDL Cholesterol 48(L) > OR = 50 mg/dL [facility] LDL Cholesterol 83 mg/dL (calc) [facility] Comment: Reference range: <100 Desirable range <100 mg/dL for primary prevention; <70 mg/dL for patients with CHD or diabetic patients with > or = 2 CHD risk factors. LDL-C is now calculated using the Loki calculation, which is a validated novel method providing better accuracy than the Friedewald equation in the estimation of LDL-C. Ibrahima SS et al. HILDA. 2013;310(19): 2773-5333 (http://education.appMobi.[employer]/faq/FEU014) Non-HDL Cholesterol 100 <130 mg/dL (calc) [facility] Comment: For patients with diabetes plus 1 major ASCVD risk factor, treating to a non-HDL-C goal of <100 mg/dL (LDL-C of <70 mg/dL) is considered a therapeutic option. Triglycerides 80 <150 mg/dL [facility] 06/04/2021 8:53 AM EDT us Gregory Coronel MD LAB BLOOD ORDERABLES Final Result [facility] [address] from Last 3 Months or Most Recently Relevant to Health Maintenance Insurance [facility] OPEN ACCESS [facility] Address: [facility] [address] [place] [address] Care Teams Custom Van Converter Relationship Specialty Start Date End Date Gregory Coronel MD [address] [place] [phone] PCP - General Internal Medicine 11/18/17
--- OUTSIDE RECORDS SUMMARY | 2025-01-05 11:42 | XMS_ITS | Encounter Summary ---
Author Organization [employer] Address [address] [facility] [address] [place] [address] Care Team Providers Care Hooker Up Name Role Phone Gregory Coronel MD Primary Care Provider [phone] Encounter Details Date Type Department Care Team ([facility] Contact Info) Description 01/05/2025 Orders Only GENERIC EXTERNAL DATA DEPARTMENT Provider, Generic External Data Social History Tobacco Use Types Packs/Day Years [...] AUTO DIFFERENTIAL Routine 01/05/2025 11:19 AM EST documented in this encounter Results * (ABNORMAL) CBC auto differential (01/05/2025 11:19 AM EST) White Blood Count 9.0 4.8 - 10.8 X10*3/uL [facility] Red Blood Count 4.30 4.20 - 5.50 X10*6/uL [facility] Hemoglobin 13.3 12.0 - 16.0 g/dl [facility] Hematocrit 40.1 37.0 - 47.0 % [facility] Mean Corpuscular Volume 93.3 80.0 - 98.0 fL [facility] Mean Corpuscular Hemoglobin 30.9 27.0 - 33.0 pg [facility] Mean Corpuscular HGB Conc 33.2 31.0 - 35.0 g/dl [facility] Red Cell Distribution Width 11.4 11.0 - 16.0 % [facility] Platelet Count 305 160 - 400 X10*3/uL [facility] Mean Platelet Volume 9.0(L) 9.4 - 12.3 fL [facility] Neutrophils Percent Auto 50.7 45 - 73 % [facility] Imm Gran Pct Auto 0.3 0.0 - 0.4 % [facility] Lymphocytes Percent Auto 41.5(H) 20 - 40 % [facility] Monocytes Percent Auto 5.7 2 - 11 % [facility] Eosinophils Percent Auto 1.1 0 - 4 % [facility] Basophils Percent Auto 0.7 0 - 2 % [facility] NRBC Pct Auto 0.0 0.0 - 0.2 /100WBC [facility] Neutrophils Absolute Auto 4.5 2.0 - 8.3 x10*3/uL [facility] Imm Gran Abs Auto 0.03 0.00 - 0.03 X10*3/uL [facility] Lymphocytes Absolute Auto 3.7 1.2 - 4.9 X10*3/uL [facility] Monocytes Absolute Auto 0.5 0.1 - 1.2 X10*3/uL [facility] Eosinophils Absolute Auto 0.1 0.0 - 0.4 X10*3/uL [facility] Basophils Absolute Auto 0.1 0.0 - 0.2 X10*3/uL [facility] NRBC Abs Auto 0.000 0.0 - 0.012 X10*3/uL [facility] 01/05/2025 11:1 9 AM EST 01/05/2025 11:19 AM EST us Generic External Data Provider LAB BLOOD ORDERAB LES Final Result Performing Organization Address City/State/[facility] Co de Phone Number [facility] [address] [place] [address] [phone] documented in this encounter Visit Diagnoses Not on filedocumented in this encounter Additional Health Concerns Assessment Noted Time PHQ-9 Depression Total Score: 1 07/29/19 23 11:28 AM EDT documented as of this encounter Care Teams Hooker Up Relationship Specialty Start Date End Date Gregory Coronel MD [address] [place] [phone] PCP - General Internal Medicine 11/18/17 documented as of this encounter
== END 2025-01-05 11:03 | disposition home or self-care (01) ==
LOC: HO.HGI 09:54
PROVIDERS: PCP Internal Medicine; Visit Provider Nurse Practitioner
DX: Z01.818 Encounter for other preprocedural examination (principal); Z12.11 Encounter for screening for malignant neoplasm of colon; Z86.0101 Personal history of adenomatous and serrated colon polyps
CPT/HCPCS: S0285

== ENCOUNTER 2025-01-05 09:53 | Outpatient (REF) | payer BC, SELFPAY ==
[2025-01-05 11:21] LABS: MANUAL DIFF FLAG NO
[2025-01-05 11:38] LABS: Hematocrit 40.1 % (37.0-47.0); Hemoglobin 13.3 g/dl (12.0-16.0); Imm Gran Abs Auto 0.03 X10*3/uL (0.00-0.03); Imm Gran Pct Auto 0.3 % (0.0-0.4); Lymphocytes Absolute Auto 3.7 X10*3/uL (1.2-4.9); Mean Corpuscular HGB Conc 33.2 g/dl (31.0-35.0); Mean Corpuscular Hemoglobin 30.9 pg (27.0-33.0); Mean Corpuscular Volume 93.3 fL (80.0-98.0); NRBC Abs Auto 0.000 X10*3/uL (0.0-0.012); NRBC Pct Auto 0.0 /100WBC (0.0-0.2); Platelet Count 305 X10*3/uL (160-400); Red Blood Count 4.30 X10*6/uL (4.20-5.50); White Blood Count 9.0 X10*3/uL (4.8-10.8)
[2025-01-05 12:19] LABS: Alanine Aminotransferase 52 U/L (0-31); Albumin Level 4.7 g/dL (3.5-5.0); Alkaline Phosphatase 86 U/L (39-117); Anion Gap 10 (12-20); Aspartate Amino Transferase 41 U/L (5-31); Blood Urea Nitrogen 23 mg/dL (9-16); Calcium 9.7 mg/dL (8.4-10.2); Carbon Dioxide 27 mmol/L (22-29); Chloride 109 mmol/L (96-108); Estimated Glomerular Filt Rate > 60; Potassium 4.4 mmol/L (3.3-5.1); Sodium 142 mmol/L (135-145); Total Protein 7.1 g/dL (6.5-8.0)
== END 2025-01-05 09:54 | disposition home or self-care (01) ==
LOC: HO.LAB 09:53
PROVIDERS: PCP Internal Medicine; Visit Provider Nurse Practitioner
DX: Z01.818 Encounter for other preprocedural examination (principal); D12.6 Benign neoplasm of colon, unspecified
CPT/HCPCS: 36415; 80053; 85025

== ENCOUNTER 2025-02-02 11:20 | Outpatient (REF) | payer BC, SELFPAY ==
[2025-02-02 15:06] LABS: MANUAL DIFF FLAG NO
[2025-02-02 15:11] LABS: Hematocrit 42.8 % (37.0-47.0); Hemoglobin 13.4 g/dl (12.0-16.0); Imm Gran Abs Auto 0.03 X10*3/uL (0.00-0.03); Imm Gran Pct Auto 0.4 % (0.0-0.4); Lymphocytes Absolute Auto 3.2 X10*3/uL (1.2-4.9); Mean Corpuscular HGB Conc 31.3 g/dl (31.0-35.0); Mean Corpuscular Hemoglobin 29.8 pg (27.0-33.0); Mean Corpuscular Volume 95.3 fL (80.0-98.0); NRBC Abs Auto 0.000 X10*3/uL (0.0-0.012); NRBC Pct Auto 0.0 /100WBC (0.0-0.2); Platelet Count 294 X10*3/uL (160-400); Red Blood Count 4.49 X10*6/uL (4.20-5.50); White Blood Count 8.2 X10*3/uL (4.8-10.8)
[2025-02-02 15:16] LABS: INTERNATIONAL NORM RATIO 0.9 (0.9-1.1); Prothrombin Time 10.8 SEC (11.2-13.5)
[2025-02-02 15:47] LABS: Alanine Aminotransferase 37 U/L (0-31); Albumin Level 4.9 g/dL (3.5-5.0); Alkaline Phosphatase 86 U/L (39-117); Anion Gap 11 (12-20); Aspartate Amino Transferase 36 U/L (5-31); Blood Urea Nitrogen 22 mg/dL (9-16); Calcium 9.4 mg/dL (8.4-10.2); Carbon Dioxide 25 mmol/L (22-29); Chloride 106 mmol/L (96-108); Cholesterol 269 mg/dL (<200); Estimated Glomerular Filt Rate > 60; HDL Cholesterol 61 mg/dL (>40); Iron 78 mcg/dL (30-160); Percent Iron Saturation 25 % (15-50); Potassium 3.9 mmol/L (3.3-5.1); Sodium 138 mmol/L (135-145); Total Iron Binding Capacity 312 mcg/dL (228-428); Total Protein 7.6 g/dL (6.5-8.0); Triglycerides 111 mg/dL (<150); Unsaturated Iron Binding 234 ug/dL
[2025-02-02 16:08] LABS: Ferritin 174 ng/mL (10-250)
--- OUTSIDE RECORDS SUMMARY | 2025-02-02 17:36 | XMS_ITS | Encounter Summary ---
Author Organization [employer] Address [address] [facility] 7 [place] [address] Care Team Providers Care Acting Professor Name Role Phone Gregory Coronel MD Primary Care Provider [phone] Reason for Visit * Reason Onset Date Comments chart prep 02/01/2025 Encounter Details Date Type Department Care Team ([facility] st Contact Info) Description 02/01/2025 Telephone [facility] [address] [place] [address] Gregory Coronel MD [address] [place] [address] chart prep Social History Tobacco Use Types Packs/Day Years [...] AM EDT documented as of this encounter Miscellaneous Notes * Telephone Encounter - Verna Frederick [place] - 02/01/2025 4:04 PM EST Chart Prep Labs: not applicable Images: not applicable Referrals: not applicable Vaccines due: Covid, Flu, PCV20, and Zoster Screenings: Lung CA screening Overdue care gaps: SBIRT, SDOH, PHQ-9, and HUGO-7 documented in this encounter Plan of Treatment Upcoming Encounters Date Type Department Care Team (Late st Contact Info) Description 05/04/2025 10:30 AM EDT Office Visit [facility] [address] [place] [address] Gregory Coronel MD [address] [place] [phone] documented as of this encounter Visit Diagnoses Not on filedocumented in this encounter Additional Health Concerns Assessment Noted Time PHQ-9 Depression Total Score: 1 07/29/19 23 11:28 AM EDT documented as of this encounter Care Teams Acting Professor Relationship Specialty Start Date End Date Gregory Coronel MD [address] [place] [phone] PCP - General Internal Medicine 11/18/17 documented as of this encounter
--- OUTSIDE RECORDS SUMMARY | 2025-02-02 17:36 | XMS_ITS | Encounter Summary ---
Author Organization [employer] [facility] Address [address] [place] [address] [address] [place] [address] Care Team Providers Care Mineral Mixer Name Role Phone Gregory Coronel MD Primary Care Provider [phone] Encounter Details Date Type Department Care Team (Late st Contact Info) Description 04/18/2022 Orders Only [facility] [address] [place] [address] Mariely Al LPN Social History Tobacco Use [...] as of this encounter Plan of Treatment Upcoming Encounters Date Type Department Care Team (Late st Contact Info) Description 05/04/2025 10:30 AM EDT Office Visit [facility] [address] [place] [address] Gregory Coronel MD [address] [place] [address] documented as of this encounter Procedures Procedure Name Priority Date/Time Associated Diagnosis Comments BI MAMMOGRAM SCREENING TOMOSYNTHESIS BILATERAL Routine 04/28/2022 1:35 PM EST documented in this encounter Results * BI Mammogram Screening Tomosynthesis Bilateral (04/28/2022 1:35 PM EST) Anatomical Region Laterality Modality Breast Bilateral Mammography 04/28/2022 1:35 PM EST Narrative 04/30/2022 11:20 AM EST [facility] [address] [place], [place] [address] Mammography Report Signed Patient: Isabel Del Rio MR#: [id number] 1 : 1960 Acct:[id number] Age/Sex: 61 / F ADM Date: 04/28/22 Loc: HO.MAMMO Attending Dr: Gregory Coronel MD Ordering Physician: Gregory Coronel MD Results: 2 Benign Findings Date of Service: 04/28/22 Follow Up: 1 Year From Orig inal Mammogram Procedure(s): MM tomosynthesis screening BI Accession Number(s): [id number] cc: Gregory Coronel MD EXAMINATION: MM SCREENING [...] in OV> 04/30/22 1116 DD/ 1335 TD/TT: Sap Basis: NAIMA Procedure Note Donotuseinterpreter, Image - 04/30/2022 [facility] [address] [place], [place] [address] Mammography Report Signed Patient: Pascual Del RioR#: [id number] 1 : 1960Acct:[id number] Age/Sex: 61 / FADM Date: 04/28/22 Loc: HO.MAMMO Attending Dr: Gregory Coronel MD Ordering Physician: Gregory Coronel MDResults: 2 Benign Findings Date of Service: 04/28/22Follow Up: 1 Year From Orig inal Mammogram Procedure(s): MM tomosynthesis screening BI Accession Number(s): [id number] cc: Gregory Coronel MD EXAMINATION: MM SCREENING [...] in OV> 04/30/22 1116 DD/ 1335 TD/TT: Sap Basis: NAIMA [facility] External Provider IMG BI PROCEDURES Final Result documented in this encounter Visit Diagnoses Not on filedocumented in this encounter Care Teams Mineral Mixer Relationship Specialty Start Date End Date Gregory Coronel MD [address] [place] [phone] PCP - General Internal Medicine 11/18/17 documented as of this encounter
--- OUTSIDE RECORDS SUMMARY | 2025-02-02 17:36 | XMS_ITS | Clinical Summary ---
Author Organization [employer] Address [address] [facility] [address] [place] [address] Care Team Providers Care Size Cutter Name Role Phone Gregory Coronel MD Primary Care Provider Allergies No known active allergies Medications atorvastatin (Lipitor) 40 MG tablet TAKE ONE TABLET DAILY 2 Active atorvastatin (Lipitor) 40 MG tabletIndications:M ixed hyperlipidemia TAKE ONE TABLET DAILY 90 tablet 3 4 Active varenicline (Chantix) 0.5 MG tabletIndications:S moking addiction Take with full glass of water. Days 1 to 3: 0.5 mg once daily. Days 4 to 7: 0.5 mg twice daily. 11 tablet 2 5 Active varenicline (Chantix) 1 MG tabletIndications:S moking addiction Take 1 tablet (1 mg) by mouth 2 times daily. Take with full glass of water. 60 tablet 2 02/02/2025 11:34 AM EST 5 03/04/19 26 Active Active Problems Problem Noted Date Diagnosed Date Atypical squamous cells of u ndetermined significance (ASCUS) on Papanicolaou smear of cervix 02/01/2025 Benign teratoma of ovary 02/01/2025 Family history of polyps in the colon 02/01/2025 High cholesterol 02/01/2025 History of hypercholesterolemia 02/01/2025 Ovarian cyst 02/01/2025 Tubular adenoma of colon 02/01/2025 History of nutritional disorder 07/28/2022 Polyp of colon 02/14/2021 Dyslipidemia 02/12/2015 Smoker 02/12/2015 Vitamin D deficiency 02/12/2015 Encounters Date Type Department Care Team Description 02/02/2025 10:30 AM EST Office Visit [facility] [address] [place] [address] Gregory Coronel MD Polyp of colon, unspecified part of colon, unspecified type (Primary Dx); History of hypercholesterolemia; Elevated BP reading w/ no diagnosis of HTN; Smoking addiction; Transaminitis 02/02/2025 Travel 02/01/2025 Telephone [facility] [address] [place] [address] Gregory Coronel MD chart prep 01/06/2025 Telephone [facility] [address] [place] [phone] Audrey Castillo DC 01/06/2025 Telephone [facility] [address] [place] [phone] Audrey Castillo DC 01/05/2025 Results Follow-Up [facility] [address] [place] [address] Gregory Coronel MD CBC auto differential, Comprehensive Metabolic Panel 01/05/2025 Orders Only GENERIC EXTERNAL DATA DEPARTMENT Provider, Generic External Data from Last 3 Months Immunizations Immunization Administration Dates Next Due Pneumococcal Polysaccharide PPSV23 12/31/2015 Tdap 05/05/2016 Family History Medical History Relation Name Comments [...] the past 12 months, has t he [employer], gas, oil or water company threatened to [...] Sign Reading Time Taken Comments Blood Pressure 152/78 02/02/2025 10:25 AM EST Pulse 87 02/02/2025 10:25 AM EST Temperature 36.8 C (98.2 F) 02/02/2025 10:25 AM EST Respiratory Rate 20 02/02/2025 10:25 AM EST Oxygen Saturation 98% 02/02/2025 10:25 AM EST Inhaled Oxygen Concentration - - Weight 67.6 kg (149 lb) 02/02/2025 10:25 AM EST Height 154.9 cm (5' 1 ) 02/02/2025 10:25 AM EST Body Mass Index 28.15 02/02/2025 10:25 AM EST Plan of Treatment Upcoming Encounters Date Type Department Care Team (Late st Contact Info) Description 05/04/2025 10:30 AM EDT Office Visit [facility] [address] [place] [address] Gregory Coronel MD [address] [place] [address] Health Maintenance Due Date Last Done Comments CT Colonography 1960 Colonoscopy 1960 Colorectal Cancer Screening 1960 FIT DNA/Cologuard 1959 FIT 1959 FOBT 1960 Sigmoidoscopy 1959 Alcohol/Substance Use Screening 1971 Hepatitis C Screening 07/04/1977 Lung Cancer Screening 07/04/2009 Zoster Vaccines (1 of 2) 07/04/2009 Depression Screening 07/29/2023 07/28/2022, 07/29/19 23 SDOH Screening 07/29/2023 07/28/2022 Tobacco Screening 03/15/2025 03/15/2024 Influenza Vaccine (#1) 2025 Postp oned from 10/24/2024 (Patient Refused) COVID-19 Vaccine ( season) 2026 04/08/2021, 05/08/2020, 04/10/2020 Postponed from 10/24/2024 (Patient Refused) Pneumococcal Vaccine: 50+ Years (2 of 2 - PCV) 02/02/2026 12/31/2015 Postponed from 12/30/2016 (Patient Refused) DTaP/Tdap/Td Vaccines (2 - Td or Tdap) 05/05/2026 05/05/2016 Mammogram 09/22/2026 09/22/2024, 08/25, 08/18/2024, Additional history exists Cervical Cancer Screening 03/15/2027 HPV/Cotest 03/15/2027 03/15/2024, 02/23, 11/16/2018 Pap Smear 03/15/2027 03/15/2024, 03/12/2021 Lipid Panel 02/02/2030 02/02/2025, 05/24, 02/26/2021 RSV Patients and Patients Aged 60 [...] Procedure Name Priority Date/Time Associated Diagnosis Comments IRON AND TOTAL IRON BINDING CAPACITY Routine 02/02/2025 11:21 AM EST Transaminitis FERRITIN Routine 02/02/2025 11:21 AM EST Transaminitis PROTHROMBIN TIME-INR Routine 02/02/2025 11:21 AM EST Transaminitis TSH W/REFLEX TO FT4 Routine 02/02/2025 11:21 AM EST Polyp of colon, unspecified part of colon, unspecified type History of hypercholesterolemia LIPID PANEL, STANDARD Routine 02/02/2025 11:21 AM EST Polyp of colon, unspecified part of colon, unspecified type History of hypercholesterolemia COMPREHENSIVE METABOLIC PANEL Routine 02/02/2025 11:21 AM EST Polyp of colon, unspecified part of colon, unspecified type History of hypercholesterolemia CBC WITH AUTO DIFFERENTIAL Routine 02/02/2025 11:21 AM EST Polyp of colon, unspecified part of colon, unspecified type History of hypercholesterolemia COMPREHENSIVE METABOLIC PANEL Routine 01/05/2025 11:19 AM EST CBC WITH AUTO DIFFERENTIAL Routine 01/05/2025 11:19 AM EST BI US BREAST LIMITED LEFT Routine 09/22/2024 1:14 PM EDT HPV DNA, LOW/HIGH RISK Routine 03/15/2024 12:00 AM EST PAP SMEAR Routine 03/15/2024 12:00 AM EST Routine cervical smear from Last 3 Months or Most Recently Relevant to Health Maintenance Results * TSH with Reflex to Free T4 (02/02/2025 11:21 AM EST) Pathologist [facility] TSH reflex Free T4 1.28 0.32 - 4.0 uIU/mL [facility] Blood Venous blood specimen / Unknown 02/02/2025 11:21 AM EST 02/02/2025 2:57 PM EST us Gregory Coronel MD LAB BLOOD ORDERABLES Final Result [facility] [address] [place] [phone] * (ABNORMAL) CBC auto differential (02/02/2025 11:21 AM EST) Only the most recent of2 resultswithin the time period is included. Pathologist [facility] White Blood Count 8.2 4.8 - 10.8 X10*3/uL [facility] Red Blood Count 4.49 4.20 - 5.50 X10*6/uL [facility] Hemoglobin 13.4 12.0 - 16.0 g/dl [facility] Hematocrit 42.8 37.0 - 47.0 % [facility] Mean Corpuscular Volume 95.3 80.0 - 98.0 fL [facility] Mean Corpuscular Hemoglobin 29.8 27.0 - 33.0 pg [facility] Mean Corpuscular HGB Conc 31.3 31.0 - 35.0 g/dl [facility] Red Cell Distribution Width 12.1 11.0 - 16.0 % [facility] Platelet Count 294 160 - 400 X10*3/uL [facility] Mean Platelet Volume 9.3(L) 9.4 - 12.3 fL [facility] Neutrophils Percent Auto 53.0 45 - 73 % [facility] Imm Gran Pct Auto 0.4 0.0 - 0.4 % [facility] Lymphocytes Percent Auto 38.4 20 - 40 % [facility] Monocytes Percent Auto 6.1 2 - 11 % [facility] Eosinophils Percent Auto 1.2 0 - 4 % [facility] Basophils Percent Auto 0.9 0 - 2 % [facility] NRBC Pct Auto 0.0 0.0 - 0.2 /100WBC [facility] Neutrophils Absolute Auto 4.4 2.0 - 8.3 x10*3/uL [facility] Imm Gran Abs Auto 0.03 0.00 - 0.03 X10*3/uL [facility] Lymphocytes Absolute Auto 3.2 1.2 - 4.9 X10*3/uL [facility] Monocytes Absolute Auto 0.5 0.1 - 1.2 X10*3/uL [facility] Eosinophils Absolute Auto 0.1 0.0 - 0.4 X10*3/uL [facility] Basophils Absolute Auto 0.1 0.0 - 0.2 X10*3/uL [facility] NRBC Abs Auto 0.000 0.0 - 0.012 X10*3/uL [facility] Blood Venous blood specimen / Unknown 02/02/2025 11:21 AM EST 02/02/2025 2:57 PM EST us Gregory Coronel MD LAB BLOOD ORDERABLES Final Result [facility] [address] [place] [address] [phone] * Iron And Total Iron Binding Capacity (02/02/2025 11:21 AM EST) Iron 78 30 - 160 mcg/dL [facility] Total Iron Binding Capacity 312 228 - 428 mcg/dL [facility] Percent Iron Saturation 25 15 - 50 % [facility] Unsaturated Iron Binding 234 ug/dL [facility] Blood Venous blood specimen / Unknown 02/02/2025 11:21 AM EST 02/02/2025 2:57 PM EST us Gregory Coronel MD LAB BLOOD ORDERABLES Final Result Performing Organization Address [facility]/ZIP Co de Phone Number [facility] [address] [place] [phone] * (ABNORMAL) Prothrombin Time-INR (02/02/2025 11:21 AM EST) Prothrombin Time 10.8(L) 11.2 - 13.5 SEC [facility] INTERNATIONAL NORM RATIO 0.9 0.9 - 1.1 [facility] Comment:INTERNATIONAL NORMAL IZED RATIO (INR) REFERENCE RANGES Reference RangeFor patients not on anticoagulant therapy: 0.9 - 1.1INR ranges for oral anticoagulanttherapy:For prevention and treatment of venous thrombosis and pulmonary embolism: 2.0 - 3.0For acute myocardial infarction with aspirin therapy: 2.0 - 3.0For acute myocardial infarction without aspirin therapy: 3.0 - 4.0For patients with mechanical prosthetic heart valves: 2.5 - 3.5 Blood Venous blood specimen / Unknown 02/02/2025 11:21 AM EST 02/02/2025 2:57 PM EST us Gregory Coronel MD LAB BLOOD ORDERABLES Final Result Performing Organization Address [facility] Co de Phone Number [facility] [address] [place] [phone] * Ferritin (02/02/2025 11:21 AM EST) Ferritin 174 10 - 250 ng/mL [facility] Blood Venous blood specimen / Unknown 02/02/2025 11:21 AM EST 02/02/2025 2:57 PM EST us Gregory Coronel MD LAB BLOOD ORDERABLES Final Result Performing Organization Address City/[facility] Co de Phone Number [facility] [address] [place] [phone] * (ABNORMAL) Lipid Panel, Standard (02/02/2025 11:21 AM EST) Triglycerides 111 <150 mg/dL [facility] Comment:Desirable Triglyceri de: less than 150 mg/dLBorderline High Triglyceride 150-199 mg/dLHigh Triglyceride: 200-499 mg/dLVery High Triglyceride: greater than or equal to 5OO mg/dL Cholesterol 269(H) <200 mg/dL [facility] Comment:Desirable Cholestero l: less than 200 mg/dLBorderline High Cholesterol: 200-239 mg/dLHigh Cholesterol: greater than 239 mg/dL LDL Cholesterol Calculated 186(H) <100 mg/dL [facility] Comment:Desirable LDL: less than 100 mg/dLNear Optimal/Above Optimal LDL: 110- 129 mg/dLBorderline High LDL: 130-159 mg/dLHigh LDL: 160-189 mg/dLVery High LDL: greater than or equal to 190 mg/dL HDL Cholesterol 61 >40 mg/dL [facility] Comment:Desirable HDL: great er than 40 mg/dL Note: This HDL assay may give artificially low results in patients with liver disease. Blood Venous blood specimen / Unknown 02/02/2025 11:21 AM EST 02/02/2025 2:57 PM EST us Gregory Coronel MD LAB BLOOD ORDERABLES Final Result [facility] [address] [place] [phone] * (ABNORMAL) Comprehensive Metabolic Panel (02/02/2025 11:21 AM EST) Only the most recent of2 resultswithin the time period is included. Sodium 138 135 - 145 mmol/L [facility] Potassium 3.9 3.3 - 5.1 mmol/L [facility] Chloride 106 96 - 108 mmol/L [facility] Carbon Dioxide 25 22 - 29 mmol/L [facility] Anion Gap 11(L) 12 - 20 [facility] Urea Nitrogen (BUN) 22(H) 9 - 16 mg/dL [facility] Creatinine, Serum 0.63 0.5 - 1.4 mg/dL [facility] Estimated Glomerular Filt Rate >60 [facility] Comment:Chronic Kidney Disea se: Estimated GFR < 60 mL/min/1.84h4Nyhsgs Kidney Disease: Estimated GFR < 15 mL/min/1.73m2 Glucose 94 60 - 115 mg/dL [facility] Calcium 9.4 8.4 - 10.2 mg/dL [facility] Bilirubin, Total 0.4 0.0 - 1.0 mg/dL [facility] Aspartate Amino Transferase 36(H) 5 - 31 U/L [facility] Alanine Aminotransferase 37(H) 0 - 31 U/L [facility] Total Protein 7.6 6.5 - 8.0 g/dL [facility] Albumin Level 4.9 3.5 - 5.0 g/dL [facility] Alkaline Phosphatase 86 39 - 117 U/L [facility] Blood Venous blood specimen / Unknown 02/02/2025 11:21 AM EST 02/02/2025 2:57 PM EST Gregory Coronel MD LAB BLOOD ORDERABLES Final Result Performing Organization Address City/State/[facility] Co de Phone Number [facility] [address] [place] [phone] * BI US Breast Limited Left (09/22/2024 1:14 PM EDT) Anatomical Region Laterality Modality Breast Left Ultrasound 09/22/2024 1:14 PM EDT Narrative 09/22/2024 2:17 PM EDT [facility] [address] [place] [address] Ultrasound Report Signed Patient: Isabel Del Rio MR#: [id number] 1 : 1960 Acct:[id number] Age/Sex: 64 / F ADM Date: 09/22/24 Loc: HO.MAMMO Attending Dr: Gregory Coronel MD Ordering Physician: Gregory Coronel MD Date of Service: 09/22/24 Procedure(s): US breast LT limited mamm only Accession Number(s): [id number] cc: Gregory Coronel MD EXAMINATION: MM DIAGNOSTIC [...] 09/22/24 1414 DD/ 1314 TD/TT: 09/22/24 1400 Food Equipment Service Technician: Procedure Note Donotuseinterpreter, Image - 09/22/2024 [facility] [address] [place], [place] [address] Ultrasound Report Signed Patient: Victoriano Del Rio#: [id number] 1 : 1960Acct:[id number] Age/Sex: 64 / FADM Date: 09/22/24 Loc: HO.MAMMO Attending Dr: Gregory Coronel MD Ordering Physician: Gregory Coronel MD Date of Service: 09/22/24 Procedure(s): US breast LT limited mamm only Accession Number(s): [id number] cc: Gregory Coronel MD EXAMINATION: MM DIAGNOSTIC [...] 09/22/24 1414 DD/ 1314 TD/TT: 09/22/24 1400 Food Equipment Service Technician: us Gregory Coronel MD IMG US PROCEDURES Final Res ult * HPV DNA, Low/High Risk (03/15/2024 12:00 AM EST) HPV High Risk Negative Negative [facility] HPV Genotype 16 Negative Negative [facility] HPV Genotype 18 Negative Negative [facility] Comment:HPV testing performe d at [facility] (CLIA#[id number]), [address] [place] [phone].Testing for HPV was performed using the Aubree [...] 03/16/2024 6:1 5 AM EST us Danilo Ayon [facility] BLOOD ORDERABLES Victoria izquierdo Result [facility] [address] [place] [phone] * Pap Smear (03/15/2024 12:00 AM EST) Swab Cervix uteri structure / Unknown 03/15/2024 03/16/2024 6:15 AM EST Narrative [facility] - 03/21/2024 10:36 AM EST ----- ------- Name: Isabel Del Rio Age/Sex: 63/F : 1960 Unit#: [id number] Attend Dr: DANILO AYON CNM Re03/15/24 Status: DEP [facility] Disch: ----- ------- SPEC : [id number] RECD: 03/16/24 STATUS: NEREIDA REYared NUM: [id number] GEE: 03/15/24-[address]: DANILO AYON CNM [...] ------- Signed (signature on file) COURTNEY Mora ([facility] [place] 03/21/24 1036 ----- ------- END OF REPORT Danilo Ayon [facility] CYTOLOGY ORDERABLES F inal Result [facility] [address] [place] [phone] from Last 3 Months or Most Recently Relevant to Health Maintenance Insurance [facility] HMO Care Teams Size Cutter Relationship Specialty Start Date End Date Gregory Coronel MD [address] [place] [phone] PCP - General Internal Medicine 11/18/17
--- OUTSIDE RECORDS SUMMARY | 2025-02-02 17:36 | XMS_ITS | Encounter Summary ---
Author Organization [employer] Address [address] [facility] 7t [place] [address] Care Team Providers Care Engine Repair Supervisor Name Role Phone Gregory Coronel MD Primary Care Provider [phone] Encounter Details Date Type Department Care Team (Latest Contact Info) Description 01/05/2025 Results Follow-Up [facility] [address] [place], [place] [phone] Gregory Coronel MD [address] [place] [address] CBC auto differential, Comprehensive Metabolic Panel Social History Tobacco Use Types Packs/Day Years [...] as of this encounter Miscellaneous Notes * Result Encounter Note - Gregory Coronel MD - 01/05/2025 1:07 PM EST Please find out if Ms Isabel Del Rio has a scheduled recall w/ me. If not please schedule a followup for chronic conditions next available. documented in this encounter Plan of Treatment Upcoming Encounters Date Type Department Care Team (Late st Contact Info) Description 05/04/2025 10:30 AM EDT Office Visit [facility] [address] [place] [address] Gregory Coronel MD [address] [place] [address] documented as of this encounter Visit Diagnoses Not on filedocumented in this encounter Additional Health Concerns Assessment Noted Time PHQ-9 Depression Total Score: 1 07/29/19 23 11:28 AM EDT documented as of this encounter Care Teams Engine Repair Supervisor Relationship Specialty Start Date End Date Gregory Coronel MD [address] [place] [phone] PCP - General Internal Medicine 11/18/17 documented as of this encounter
--- OUTSIDE RECORDS SUMMARY | 2025-02-02 17:36 | XMS_ITS | Encounter Summary ---
Author Organization [employer] Address [address] [facility] [address]t [place] [address] Care Team Providers Care [employer]ging [employer] Executive Name Role Phone Gregory Coronel MD Primary Care Provider [phone] Encounter Details Date Type Department Care Team (Latest Contact Info) Description 02/02/2025 Travel Social History Tobacco Use Types Packs/Day [...] Upcoming Encounters Date Type Department Care Team ([facility] st Contact Info) Description 05/04/2025 10:30 AM EDT Office Visit [facility] [address] [place] [address] Gregory Coronel MD [address] [place] [address] documented as of this encounter Visit Diagnoses Not on filedocumented in this encounter Additional Health Concerns Assessment Noted Time PHQ-9 Depression Total Score: 1 07/29/19 23 11:28 AM EDT documented as of this encounter Care Teams [employer] Executive Relationship Specialty Start Date End Date Gregory Coronel MD [address] [place] [address] PCP - General Internal Medicine 11/18/17 documented as of this encounter
[2025-02-03 07:52] LABS: HBc Num1 8.67 S/CO (0.00-0.79); HBsAGNum1 0.43 S/CO (0.00-0.99); Hepatitis A Antibody IgM 0.32 Index (0-0.79); Hepatitis B Surface Antigen Negative (Negative); ~HepC Num1 0.09 S/CO (0.00-0.79); ~Hepatitis A Antibody IgM Nonreactive (Nonreactive); ~Hepatitis B Surface Antibody REACTIVE (Nonreactive); ~Hepatitis C Antibody Nonreactive (Nonreactive)
[2025-02-03 09:27] LABS: HBc Num2 8.51 S/CO
[2025-02-03 09:29] LABS: HBc Num3 8.50 S/CO
== END 2025-02-02 11:21 | disposition home or self-care (01) ==
LOC: HO.CHCLDS 11:20
PROVIDERS: Visit Provider Internal Medicine
DX: Z01.84 Encounter for antibody response examination (principal); K63.5 Polyp of colon; Z86.39 Personal history of other endocrine, nutritional and metabolic disease; R74.01 Elevation of levels of liver transaminase levels
CPT/HCPCS: 36415; 80053; 80061; 82728; 82784; 83540; 84443; 85025; 85610; 86704; 86706; 86709; 86803; 87340